=== PATIENT | female | born 1965 | race American Indian/Alaskan Native ===

== ENCOUNTER 2020-05-29 13:27 | Inpatient (IN) | payer OTHER ==
--- NOTE | 2020-05-29 13:46 | Event Note ---
ED Screening Note ED Screening Note: Patient is a 55-year-old female presents emergency room complaints of left upper extremity and left lower extremity weakness that began on 05/21/2020 Patient's sister states that her speech also seems slightly slurred at times She receives her care at [facility] She states that she has an upcoming appointment for tomorrow at the clinic She has not seen anyone for these symptoms She states that she does have some mild exertional shortness of breath She denies any chest pain, vision changes Past medical history of lupus Allergy to aspirin, lisinopril, penicillin, sulfa This initial assessment/diagnostic orders/clinical plan/treatment(s) is/are subject to change based on patients health status, clinical progression and re- assessment by fellow clinical providers in the ED. Further treatment and workup at subsequent clinical providers discretion. Patient/guardian urged not to elope from the ED as their condition may be serious if not clinically assessed and managed. Initial orders include: Stroke work-up, cardiac work-up for shortness of breath
[2020-05-29 14:19] LABS: Basophils % (Auto) 0.4 % (0.0-1.8); Eosinophils % (Auto) 0.4 % (0.0-4.3); Hematocrit 41.2 % (30.3-42.9); Lymphocytes # (Auto) 1.1 K/mm3 (1.2-5.4); Lymphocytes % (Auto) 39.9 % (13.4-35.0); Mean Corpuscular HGB Conc 34 % (30-34); Mean Corpuscular Volume 93 fl (79-97); Monocytes # (Auto) 0.4 K/mm3 (0.0-0.8); Monocytes % (Auto) 13.2 % (0.0-7.3); Platelet Count 249 K/mm3 (140-440); Red Blood Count 4.42 M/mm3 (3.65-5.03); Red Cell Distribution Width 13.7 % (13.2-15.2)
[2020-05-29 14:27] LABS: INR 0.92 (0.87-1.13)
[2020-05-29 14:28] LABS: Partial Thromboplastin Time 26.9 Sec. (24.2-36.6)
--- NOTE | 2020-05-29 14:30 | Emergency Department Report ---
ED Neuro Deficit HPI - General Chief Complaint: Neuro Symptoms/Deficit Stated Complaint: POSS STROKE Time Seen by Provider: 05/29/20 13:43 Source: patient Mode of arrival: Wheelchair Limitations: No Limitations - History of Present Illness Initial Comments: This is a 55-year-old female with a history of hypertension and lupus who states that she has had weakness and numbness of her left side for 1 week. She does not describe the symptoms as progressive nor does she complain of headache. Apparently she called the [facility] yesterday for advice. She, has not been seen by medical provider during this period of time. She was a little vague about whether or not she has had neuro symptoms related to her lupus in the past. However largely I think she is saying that she has not. At the same time she tells me that she was "in a coma before". As far as I can tell she required intubation for THONY inhibitor related angioedema and was probably sedated for some time. She is a very poor historian but is able to give general information. She has not been to this facility apparently prior and there is no [facility] records. Patient states that her numbness involves her entire left hemicorporal body. She states that she has not been able to walk. She states that she has little to no use of her left upper extremity. At times she has slurring of the speech she states. At the time my encounter it is really undetectable. Patient denies a history of her lupus affecting her kidneys. She states that her current lupus medicine is Plaquenil. She states that she is compliant with her amlodipine/HCTZ. -: Gradual, week(s) Location: speech, left face, left arm Presenting Symptoms: Present: Weak/Paralyzed One Side History of same: No Place: home Severity: severe Quality: weak, numb Improves With: none Worsens With: none On Anticoagulants: No Context: gradual onset Associated Symptoms: denies other symptoms Treatments Prior to Arrival: none - Related Data Allergies/Adverse Reactions: Allergies Allergy/AdvReac Type Severity Reaction Status Date / Time aspirin Allergy Unknown Verified 05/29/20 13:31 lisinopril Allergy Unknown Verified 05/29/20 13:31 Penicillins Allergy Swelling Verified 05/29/20 13:31 Sulfa (Sulfonamide Allergy Unknown Verified 05/29/20 13:31 Antibiotics) ED Review of Systems ROS: Stated complaint: POSS STROKE Other details as noted in HPI ED Past Medical Hx - Past Medical History Hx Hypertension: Yes Hx Arthritis: Yes (RA) Additional medical history: LUPUS/ THYROID - Surgical History Hx Cholecystectomy: Yes - Social History Smoking Status: Never Smoker Substance Use Type: None ED Neuro Physical Exam - General Limitations: No Limitations General appearance: alert, in no apparent distress Suspected Stroke: Yes - Head Head exam: Present: atraumatic, normocephalic - Eye Eye exam: Present: normal appearance. Absent: scleral icterus - ENT ENT exam: Present: mucous membranes moist, other (Perhaps slight facial asym metry left nasolabial fold slightly lower) - Neck Neck exam: Present: normal inspection. Absent: tenderness, meningismus - Respiratory Respiratory exam: Present: normal lung sounds bilaterally. Absent: respiratory distress - Cardiovascular Cardiovascular Exam: Present: regular rate, normal rhythm. Absent: systolic murmur, diastolic murmur, rubs, gallop - GI/Abdominal GI/Abdominal exam: Present: soft, normal bowel sounds. Absent: distended, tenderness, guarding, rebound, rigid - Extremities Exam Extremities exam: Present: normal inspection - Back Exam Back exam: Present: normal inspection - Neurological Exam Neurological exam: Present: alert, oriented X3, CN II-XII intact (Question slight asymmetry left), motor sensory deficit - NIHSS Assessment Interval: Baseline 1a. Level of Consciousness: alert/keenly responsive 1b. LOC Questions: answers both correctly 1c. LOC Commands: performs tasks correctly 2. Best Gaze: normal 3. Visual: no visual loss 4. Facial Palsy: normal symmetrical movement 5b. Motor Arm Right: no drift 5a. Motor Arm Left: no movement 6a. Motor Leg Left: no gravity effort 6b. Motor Leg Right: no drift 7. Limb Ataxia: absent 8. Sensory: mild/moderate sensory loss 9. Best Language: no aphasia 10. Dysarthria: normal 11. Extinction/Inattention: no abnormality Total Score: 8 Stroke Severity: Moderate Stroke - Psychiatric Psychiatric exam: Present: normal affect, normal mood - Skin Skin exam: Present: warm, dry, intact, normal color. Absent: rash ED Course Vital Signs 05/29/20 05/29/20 13:37 13:41 Temperature 98 F Pulse Rate 73 Respiratory 20 Rate Blood Pressure 182/114 O2 Sat by Pulse 100 Oximetry - Reevaluation(s) Reevaluation #1: Telemetry neuro consult is requested. 05/29/20 14:36 Reevaluation #2: Discussed with telemetry neuro. They will see patient and make recommendations. Discussed with hospitalist. He will see patient and make disposition. I will hold off on aspirin because the patient is allergic. We will defer Plavix and possible other work-up and therapy to the above physicians. 05/29/20 15:06 Reevaluation #3: Discussed with teleneurologist. See their note for recommendations. Further care per hospitalist staff. 05/29/20 15:28 - Lab Data Result diagrams: 05/29/20 13:57 05/29/20 14:12 Lab Results 05/29/20 05/29/20 05/29/20 Range/Units 13:38 13:57 13:57 WBC 2.9 L (4.5-11.0) K/mm3 RBC 4.42 (3.65-5.03) M/mm3 Hgb 14.0 (10.1-14.3) gm/dl Hct 41.2 (30.3-42.9) % MCV 93 (79-97) fl MCH 32 (28-32) pg MCHC 34 (30-34) % RDW 13.7 (13.2-15.2) % Plt Count 249 (140-440) K/mm3 Lymph % (Auto) 39.9 H (13.4-35.0) % [place] % (Auto) 13.2 H (0.0-7.3) % Eos % (Auto) 0.4 (0.0-4.3) % Baso % (Auto) 0.4 (0.0-1.8) % Lymph # (Auto) 1.1 L (1.2-5.4) K/mm3 [place] # (Auto) 0.4 (0.0-0.8) K/mm3 Eos # (Auto) 0.0 (0.0-0.4) K/mm3 Baso # (Auto) 0.0 (0.0-0.1) K/mm3 Seg Neutrophils % 46.1 (40.0-70.0) % Seg Neutrophils # 1.3 L (1.8-7.7) K/mm3 PT 12.2 (12.2-14.9) Sec. INR 0.92 (0.87-1.13) APTT 26.9 (24.2-36.6) Sec. Sodium (137-145) mmol/L Potassium (3.6-5.0) mmol/L Chloride (98-107) mmol/L Carbon Dioxide (22-30) mmol/L Anion Gap mmol/L BUN (7-17) mg/dL Creatinine (0.6-1.2) mg/dL Estimated GFR ml/min BUN/Creatinine Ratio % Glucose (65-100) mg/dL POC Glucose 61 L (70-105) mg/dL Calcium (8.4-10.2) mg/dL Magnesium (1.7-2.3) mg/dL Total Bilirubin (0.1-1.2) mg/dL Direct Bilirubin (0-0.2) mg/dL Indirect Bilirubin mg/dL AST (5-40) units/L ALT (7-56) units/L Alkaline Phosphatase (35-129) units/L Total Creatine Kinase (30-135) units/L CK-MB (CK-2) (0.0-4.0) ng/mL CK-MB (CK-2) Rel Index (0-4) C-Reactive Protein (0.00-1.30) mg/dL Total Protein (6.3-8.2) g/dL Albumin (3.9-5) g/dL Albumin/Globulin Ratio % 05/29/20 05/29/20 Range/Units 14:12 14:12 WBC (4.5-11.0) K/mm3 RBC (3.65-5.03) M/mm3 Hgb (10.1-14.3) gm/dl Hct (30.3-42.9) % MCV (79-97) fl MCH (28-32) pg MCHC (30-34) % RDW (13.2-15.2) % Plt Count (140-440) K/mm3 Lymph % (Auto) (13.4-35.0) % [place] % (Auto) (0.0-7.3) % Eos % (Auto) (0.0-4.3) % Baso % (Auto) (0.0-1.8) % Lymph # (Auto) (1.2-5.4) K/mm3 [place] # (Auto) (0.0-0.8) K/mm3 Eos # (Auto) (0.0-0.4) K/mm3 Baso # (Auto) (0.0-0.1) K/mm3 Seg Neutrophils % (40.0-70.0) % Seg Neutrophils # (1.8-7.7) K/mm3 PT (12.2-14.9) Sec. INR (0.87-1.13) APTT (24.2-36.6) Sec. Sodium 138 (137-145) mmol/L Potassium 4.1 (3.6-5.0) mmol/L Chloride 105.2 (98-107) mmol/L Carbon Dioxide 27 (22-30) mmol/L Anion Gap 10 mmol/L BUN 8 (7-17) mg/dL Creatinine 0.7 (0.6-1.2) mg/dL Estimated GFR > 60 ml/min BUN/Creatinine Ratio 11 % Glucose 91 (65-100) mg/dL POC Glucose (70-105) mg/dL Calcium 10.2 (8.4-10.2) mg/dL Magnesium 2.00 (1.7-2.3) mg/dL Total Bilirubin 0.30 (0.1-1.2) mg/dL Direct Bilirubin < 0.2 (0-0.2) mg/dL Indirect Bilirubin 0.1 mg/dL AST 25 (5-40) units/L ALT 21 (7-56) units/L Alkaline Phosphatase 93 (35-129) units/L Total Creatine Kinase 72 (30-135) units/L CK-MB (CK-2) 4.2 H (0.0-4.0) ng/mL CK-MB (CK-2) Rel Index 5.8 H (0-4) C-Reactive Protein 0.10 (0.00-1.30) mg/dL Total Protein 9.5 H (6.3-8.2) g/dL Albumin 4.4 (3.9-5) g/dL Albumin/Globulin Ratio 0.9 % Laboratory Results - last 24 hr 05/29/20 05/29/20 13:57 13:57 WBC 2.9 L RBC 4.42 Hgb 14.0 Hct 41.2 MCV 93 MCH 32 MCHC 34 RDW 13.7 Plt Count 249 Lymph % (Auto) 39.9 H [place] % (Auto) 13.2 H Eos % (Auto) 0.4 Baso % (Auto) 0.4 Lymph # (Auto) 1.1 L [place] # (Auto) 0.4 Eos # (Auto) 0.0 Baso # (Auto) 0.0 Seg Neutrophils % 46.1 Seg Neutrophils # 1.3 L PT 12.2 INR 0.92 APTT 26.9 Laboratory Results - last 24 hr 05/29/20 05/29/20 05/29/20 13:38 13:57 13:57 WBC 2.9 L RBC 4.42 Hgb 14.0 Hct 41.2 MCV 93 MCH 32 MCHC 34 RDW 13.7 Plt Count 249 Lymph % (Auto) 39.9 H [place] % (Auto) 13.2 H Eos % (Auto) 0.4 Baso % (Auto) 0.4 Lymph # (Auto) 1.1 L [place] # (Auto) 0.4 Eos # (Auto) 0.0 Baso # (Auto) 0.0 Seg Neutrophils % 46.1 Seg Neutrophils # 1.3 L PT 12.2 INR 0.92 APTT 26.9 Sodium Potassium Chloride Carbon Dioxide Anion Gap BUN Creatinine Estimated GFR BUN/Creatinine Ratio Glucose POC Glucose 61 L Calcium Magnesium Total Bilirubin Direct Bilirubin Indirect Bilirubin AST ALT Alkaline Phosphatase Total Creatine Kinase CK-MB (CK-2) CK-MB (CK-2) Rel Index Total Protein Albumin Albumin/Globulin Ratio 05/29/20 14:12 WBC RBC Hgb Hct MCV MCH MCHC RDW Plt Count Lymph % (Auto) [place] % (Auto) Eos % (Auto) Baso % (Auto) Lymph # (Auto) [place] # (Auto) Eos # (Auto) Baso # (Auto) Seg Neutrophils % Seg Neutrophils # PT INR APTT Sodium 138 Potassium 4.1 Chloride 105.2 Carbon Dioxide 27 Anion Gap 10 BUN 8 Creatinine 0.7 Estimated GFR > 60 BUN/Creatinine Ratio 11 Glucose 91 POC Glucose Calcium 10.2 Magnesium 2.00 Total Bilirubin 0.30 Direct Bilirubin < 0.2 Indirect Bilirubin 0.1 AST 25 ALT 21 Alkaline Phosphatase 93 Total Creatine Kinase 72 CK-MB (CK-2) 4.2 H CK-MB (CK-2) Rel Index 5.8 H Total Protein 9.5 H Albumin 4.4 Albumin/Globulin Ratio 0.9 - EKG Data -: EKG Interpreted by Me EKG shows normal: sinus rhythm (First-degree), axis (Left foot axis), intervals, ST-T waves Rate: normal Interpretation: LVH (LVH, associated repolarization abnormality, left atrial enlargement, first-degree AV block) - Radiology Data Radiology results: image reviewed (I do not see any evidence of an acute intracranial process. Report is pending.) No acute process seen by me or teleneurologist. Report is pending. 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 Critical care attestation.: If time is entered above; I have spent that time in minutes in the direct care of this critically ill patient, excluding procedure time. ED Disposition Clinical Impression: CVA (cerebral vascular accident) Qualifiers: CVA mechanism: unspecified Qualified Code(s): I63.9 - Cerebral infarction, unspecified Disposition: DC-09 OP ADMIT IP TO THIS HOSP Is pt being admited?: Yes Does the pt Need Aspirin: No (Allergic to aspirin) Condition: Stable Referrals: PRIMARY CARE, [Primary Care Provider] - 3-5 Days Time of Disposition: 15:29
[2020-05-29 14:53] LABS: Creatine Kinase MB 4.2 ng/mL (0.0-4.0)
[2020-05-29 14:57] LABS: Alanine Aminotransferase 21 units/L (7-56); Albumin 4.4 g/dL (3.9-5); Blood Urea Nitrogen 8 mg/dL (7-17); Calcium 10.2 mg/dL (8.4-10.2); Hemolysis Index 1
[2020-05-29 15:00] LABS: BUN/Creatinine Ratio 11; Bilirubin,Direct < 0.2 mg/dL (0-0.2)
--- NOTE | 2020-05-29 15:07 | Cat Scan Report ---
NONENHANCED CT SCAN OF THE HEAD: INDICATION / CLINICAL INFORMATION: 55 years Female; left sided weakness x1 week. TECHNIQUE: Routine CT head without contrast. All CT scans at this location are performed using CT dos e reduction for ALARA by means of automated exposure control. COMPARISON: None. FINDINGS: BRAIN / INTRACRANIAL CONTENTS: No acute hemorrhage, mass effect, midline shift, hydrocephalus, or acu te, large territorial infarct. Focal areas of encephalomalacia probably ischemia in the left occipita l lobe and left cuneus. No mass effect No significant white matter abnormality. Mild volume loss in t he cerebellar vermis; retrocerebellar CSF-containing space consistent with magna cisterna magna CRANIOCERVICAL JUNCTION: No significant abnormality. ORBITS: No significant abnormality of visualized orbits. SINUSES / MASTOIDS: No significant abnormality of the visualized paranasal sinuses or mastoid air delbert ls. ADDITIONAL FINDINGS: Visualized portions of the parotid glands, as focal areas of lower CT attenuatio n; is there history of Sjogren's IMPRESSION: No focal mass, hemorrhage, hydrocephalus, or acute, large territorial infarct. Focal areas of encephalomalacia in the left occipital lobe and left cuneus Signer Name: Cory Torre MD Signed: 05/29/2020 3:02 PM Workstation Name: [id number]
--- NOTE | 2020-05-29 15:19 | XRay Report ---
CHEST 1 VIEW INDICATION: hypertension. COMPARISON: None FINDINGS: Support devices: None. Heart: Within normal limits. Lungs/Pleura: No acute air space or interstitial disease. Additional findings: None. IMPRESSION: No acute findings. Signer Name: Barrera Baldwin Jr, MD Signed: 05/29/2020 3:14 PM Workstation Name: [id number]
--- NOTE | 2020-05-29 15:31 | History and Physical Report ---
History of Present Illness Chief complaint: Im weak History of present illness: 55 YO Female with SLE, RA, HTN present to ED for evaluation. Pt states "I feel weak on my left side". Pt states that she has experienced weakness and numbness on her left side for the past 1 week with persistent symptoms over the same time frame. Pt transported to [facility] via private vehicle for further care and evaluation of the aforementioned symptoms. Pt seen and evaluated in ED. All labs and imaging studies reviewed. The patient was found to have a neurologic deficit and a code stroke was called. The patient was placed in observation status and admitted to medical floor and initiated on CVA protocol. Pt is allergic to aspirin and was initiated on antiplatelet therapy with plavix. Teleneurology consulted in ED. Pt denies fever, chills, CP, Palpitations, NVD, Trauma, productive cough, recent ill contacts, or known exposure to COVID 19. Past History Past Medical History: arthritis, hypertension, other (See HPI) Past Surgical History: cholecystectomy Social history: single. denies: smoking, alcohol abuse, prescription drug abuse Family history: hypertension Medications and Allergies Allergies Allergy/AdvReac Type Severity Reaction Status Date / Time aspirin Allergy Unknown Verified 05/29/20 13:31 lisinopril Allergy Unknown Verified 05/29/20 13:31 Penicillins Allergy Swelling Verified 05/29/20 13:31 Sulfa (Sulfonamide Allergy Unknown Verified 05/29/20 13:31 Antibiotics) Review of Systems Constitutional: no weight loss, no weight gain, no fever, no chills Ears, nose, mouth and throat: no ear pain, no ear discharge, no tinnitis, no decreased hearing, no nose pain Breasts: no change in shape, no swelling, no mass Cardiovascular: no chest pain, no orthopnea, no palpitations, no rapid/irregular heart beat, no edema Respiratory: no cough, no hemoptysis, no shortness of breath Gastrointestinal: no abdominal pain, no nausea, no vomiting, no change in bowel habits, no hematemesis Genitourinary Female: no pelvic pain, no flank pain, no dysuria, no urinary frequency, no urgency Rectal: no pain, no incontinence, no bleeding Musculoskeletal: no neck pain, no shooting arm pain, no arm numbness/tingling Integumentary: no rash, no pruritis, no redness, no sores, no wounds Neurological: no transient paralysis, no paralysis, no parathesias, no numbness, no tingling, no seizures Psychiatric: no anxiety, no change in sleep habits, no insomnia, no hypersomnia, no change in libido, no disorientation Endocrine: no cold intolerance, no polydipsia, no excessive sweating Hematologic/Lymphatic: no easy bruising, no lymphadenopathy, no lymphedema Allergic/Immunologic: no allergic rhinitis, no persistent infections, no angioedema Exam - Constitutional Vitals: Temp Pulse Resp BP Pulse Ox 98 F 73 20 182/114 100 05/29/20 13:41 05/29/20 13:37 05/29/20 13:37 05/29/20 13:37 05/29/20 13:37 General appearance: Present: mild distress - EENT Eyes: Present: PERRL ENT: hearing intact, clear oral mucosa - Neck Neck: Present: supple, normal ROM - Respiratory Respiratory effort: normal Respiratory: bilateral: CTA - Cardiovascular Heart Sounds: Present: S1 & S2. Absent: rub, click - Extremities Extremities: pulses symmetrical, No edema Peripheral Pulses: within normal limits - Abdominal General gastrointestinal: Present: soft, non-tender, non-distended, normal bowel sounds Female genitourinary: Present: normal - Integumentary Integumentary: Present: clear, warm, dry - Musculoskeletal Musculoskeletal: left sided weakness - Psychiatric Psychiatric: appropriate mood/affect, intact judgment & insight - Neurologic Neurologic: CNII-XII intact, moves all extremities Results - Labs CBC & Chem 7: 05/29/20 13:57 05/29/20 14:12 Labs: Abnormal lab results 05/29/20 05/29/20 05/29/20 Range/Units 13:38 13:57 14:12 WBC 2.9 L (4.5-11.0) K/mm3 Lymph % (Auto) 39.9 H (13.4-35.0) % [place] % (Auto) 13.2 H (0.0-7.3) % Lymph # (Auto) 1.1 L (1.2-5.4) K/mm3 Seg Neutrophils # 1.3 L (1.8-7.7) K/mm3 POC Glucose 61 L (70-105) mg/dL CK-MB (CK-2) 4.2 H (0.0-4.0) ng/mL CK-MB (CK-2) Rel Index 5.8 H (0-4) Total Protein 9.5 H (6.3-8.2) g/dL Assessment and Plan - Patient Problems (1) CVA (cerebral vascular accident) Current Visit: Yes Status: Acute Qualifiers: CVA mechanism: occlusion Precerebral and cerebral artery: posterior c erebral artery Laterality of affected vessel: left Qualified Code(s): I63.532 - Cerebral infarction due to unspecified occlusion or stenosis of left posterior cerebral artery Plan to address problem: CVA Protocol: Physical therapy consulted, Speech therapy consulted, Occupational therapy consulted, Antiplatelet therapy, CT Head, neuro check, lipid panel, statin therapy. (2) SLE (systemic lupus erythematosus related syndrome) Current Visit: Yes Status: Acute Plan to address problem: Continue plaquenil, supportive care, outpatient rheumatology f/u (3) Accelerated hypertension Current Visit: Yes Status: Acute Plan to address problem: Monitor BP q shift, continue medical management (4) Rheumatoid arthritis Current Visit: Yes Status: Acute Plan to address problem: supportive care, continue medical management. (5) DVT prophylaxis Current Visit: Yes Status: Acute Plan to address problem: SCD to BLE while in bed, supportive care.
--- NOTE | 2020-05-29 15:40 | Emergency Department Report ---
ED Neuro Deficit HPI - General Chief Complaint: Neuro Symptoms/Deficit Stated Complaint: POSS STROKE Time Seen by Provider: 05/29/20 13:43 Source: patient Mode of arrival: Wheelchair Limitations: No Limitations - History of Present Illness Initial Comments: [facility] Tele[facility]urology Consult Services Stat Consult Date of Service: 05/29/2020 14:33:40 Impression: I63.332 - Cerebrovascular accident (CVA) due to thrombosis of left posterior cerebral artery (HCCC) Comments/Sign-Out: The lesion is reported by radiology to me appear to be subacute consistent with her symptoms. She needs MRI the brain, A1c, fasting lipid profile, EKG monitoring, echocardiogram, carotid Doppler, rehab services evaluation, blood pressure control. CT HEAD: Showed No Acute Hemorrhage or Acute Core Infarct Not Reviewed Unable to access images. Reported to show infarcts in the left occipital lobe and cuneus. Metrics: [facility] Notification Time: 05/29/2020 14:31:35 Stamp Time: 05/29/2020 14:33:40 Callback Response Time: 05/29/2020 14:39:12 Our recommendations are outlined below. Recommendations: Initiate Aspirin 81 MG Daily Imaging Studies: MRI Head Carotid Dopplers Therapies: Physical Therapy, Occupational Therapy, Speech Therapy Assessment When Applicable Other WorkUp: Check B12 level Disposition: Neurology Follow Up Recommended Sign Out: Discussed with Emergency Department Provider Chief Complaint: Left-sided weakness History of Present Illness: Patient is a 55 year old Female. This 55-year-old woman had sudden onset seven days ago of severe weakness on the left side and some mild slurred speech. She decided that she would wait for an upcoming doctor's appointment. In addition to risk factors below she has a history of lupus. She denies prior stroke. Past Medical History: Hypertension There is NO history of Diabetes Mellitus There is NO history of Hyperlipidemia There is NO history of Atrial Fibrillation There is NO history of Coronary Artery Disease There is NO history of Stroke Anticoagulant use: No Antiplatelet use: No Examination: BP(171/104), Pulse(73), Blood Glucose(91, 61) 1A: Level of Consciousness - Alert; keenly responsive + 0 1B: Ask Month and Age - Both Questions Right + 0 1C: Blink Eyes & Squeeze Hands - Performs Both Tasks + 0 2: Test Horizontal Extraocular Movements - Normal + 0 3: Test Visual [place] - Partial Hemianopia + 1 4: Test Facial Palsy (Use Grimace if Obtunded) - Minor paralysis (flat nasolabial fold, smile asymmetry) + 1 5A: Test Left Arm Motor Drift - No Effort Against [place] + 3 5B: Test Right Arm Motor Drift - No Drift for 10 Seconds + 0 6A: Test Left Leg Motor Drift - No Effort Against Canalou + 3 6B: Test Right Leg Motor Drift - No Drift for 5 Seconds + 0 7: Test Limb Ataxia (FNF/Heel-Priest) - No Ataxia + 0 8: Test Sensation - Mild-Moderate Loss: Less Sharp/More Dull + 1 9: Test Language/Aphasia - Normal; No aphasia + 0 10: Test Dysarthria - Mild-Moderate Dysarthria: Slurring but can be understood + 1 11: Test Extinction/Inattention - No abnormality + 0 NIHSS Score: 10 Due to the immediate potential for life-threatening deterioration due to underlying acute neurologic illness, I spent 25 minutes providing critical care. This time includes time for face to face visit via telemedicine, review of medical records, imaging studies and discussion of findings with providers, the patient and/or family. Dr Stewart Beaver [facility] Case [id number] Location: speech, left face, left arm History of same: No Place: home Severity: severe Quality: weak, numb Improves With: none Worsens With: none On Anticoagulants: No Treatments Prior to Arrival: none - Related Data Allergies/Adverse Reactions: Allergies Allergy/AdvReac Type Severity Reaction Status Date / Time aspirin Allergy Unknown Verified 05/29/20 13:31 lisinopril Allergy Unknown Verified 05/29/20 13:31 Penicillins Allergy Swelling Verified 05/29/20 13:31 Sulfa (Sulfonamide Allergy Unknown Verified 05/29/20 13:31 Antibiotics) ED Review of Systems ROS: Stated complaint: POSS STROKE Other details as noted in HPI ED Past Medical Hx - Past Medical History Hx Hypertension: Yes Hx Arthritis: Yes (RA) Additional medical history: LUPUS/ THYROID - Surgical History Hx Cholecystectomy: Yes - Social History Smoking Status: Never Smoker Substance Use Type: None ED Neuro Physical Exam - General Limitations: No Limitations General appearance: alert, in no apparent distress Suspected Stroke: Yes - NIHSS Assessment Interval: Baseline 1a. Level of Consciousness: alert/keenly responsive 1b. LOC Questions: answers both correctly 1c. LOC Commands: performs tasks correctly 2. Best Gaze: normal 3. Visual: complete hemianopia 4. Facial Palsy: minor paralysis 5b. Motor Arm Right: no drift 5a. Motor Arm Left: no gravity effort 6a. Motor Leg Left: no gravity effort 6b. Motor Leg Right: no drift 7. Limb Ataxia: absent 8. Sensory: mild/moderate sensory loss 9. Best Language: no aphasia 10. Dysarthria: mild/moderate dysarthria 11. Extinction/Inattention: no abnormality Total Score: 11 Stroke Severity: Moderate Stroke ED Course Vital Signs 05/29/20 05/29/20 13:37 13:41 Temperature 98 F Pulse Rate 73 Respiratory 20 Rate Blood Pressure 182/114 O2 Sat by Pulse 100 Oximetry - Lab Data Result diagrams: 05/29/20 13:57 05/29/20 14:12 Lab Results 05/29/20 05/29/20 05/29/20 Range/Units 13:38 13:57 13:57 WBC 2.9 L (4.5-11.0) K/mm3 RBC 4.42 (3.65-5.03) M/mm3 Hgb 14.0 (10.1-14.3) gm/dl Hct 41.2 (30.3-42.9) % MCV 93 (79-97) fl MCH 32 (28-32) pg MCHC 34 (30-34) % RDW 13.7 (13.2-15.2) % Plt Count 249 (140-440) K/mm3 Lymph % (Auto) 39.9 H (13.4-35.0) % [place] % (Auto) 13.2 H (0.0-7.3) % Eos % (Auto) 0.4 (0.0-4.3) % Baso % (Auto) 0.4 (0.0-1.8) % Lymph # (Auto) 1.1 L (1.2-5.4) K/mm3 [place] # (Auto) 0.4 (0.0-0.8) K/mm3 Eos # (Auto) 0.0 (0.0-0.4) K/mm3 Baso # (Auto) 0.0 (0.0-0.1) K/mm3 Seg Neutrophils % 46.1 (40.0-70.0) % Seg Neutrophils # 1.3 L (1.8-7.7) K/mm3 ESR (0-20) mm/Hr PT 12.2 (12.2-14.9) Sec. INR 0.92 (0.87-1.13) APTT 26.9 (24.2-36.6) Sec. Sodium (137-145) mmol/L Potassium (3.6-5.0) mmol/L Chloride (98-107) mmol/L Carbon Dioxide (22-30) mmol/L Anion Gap mmol/L BUN (7-17) mg/dL Creatinine (0.6-1.2) mg/dL Estimated GFR ml/min BUN/Creatinine Ratio % Glucose (65-100) mg/dL POC Glucose 61 L (70-105) mg/dL Calcium (8.4-10.2) mg/dL Magnesium (1.7-2.3) mg/dL Total Bilirubin (0.1-1.2) mg/dL Direct Bilirubin (0-0.2) mg/dL Indirect Bilirubin mg/dL AST (5-40) units/L ALT (7-56) units/L Alkaline Phosphatase (35-129) units/L Total Creatine Kinase (30-135) units/L CK-MB (CK-2) (0.0-4.0) ng/mL CK-MB (CK-2) Rel Index (0-4) C-Reactive Protein (0.00-1.30) mg/dL Total Protein (6.3-8.2) g/dL Albumin (3.9-5) g/dL Albumin/Globulin Ratio % 05/29/20 05/29/20 05/29/20 Range/Units 14:12 14:12 14:12 WBC (4.5-11.0) K/mm3 RBC (3.65-5.03) M/mm3 Hgb (10.1-14.3) gm/dl Hct (30.3-42.9) % MCV (79-97) fl MCH (28-32) pg MCHC (30-34) % RDW (13.2-15.2) % Plt Count (140-440) K/mm3 Lymph % (Auto) (13.4-35.0) % [place] % (Auto) (0.0-7.3) % Eos % (Auto) (0.0-4.3) % Baso % (Auto) (0.0-1.8) % Lymph # (Auto) (1.2-5.4) K/mm3 [place] # (Auto) (0.0-0.8) K/mm3 Eos # (Auto) (0.0-0.4) K/mm3 Baso # (Auto) (0.0-0.1) K/mm3 Seg Neutrophils % (40.0-70.0) % Seg Neutrophils # (1.8-7.7) K/mm3 ESR 48 (0-20) mm/Hr PT (12.2-14.9) Sec. INR (0.87-1.13) APTT (24.2-36.6) Sec. Sodium 138 (137-145) mmol/L Potassium 4.1 (3.6-5.0) mmol/L Chloride 105.2 (98-107) mmol/L Carbon Dioxide 27 (22-30) mmol/L Anion Gap 10 mmol/L BUN 8 (7-17) mg/dL Creatinine 0.7 (0.6-1.2) mg/dL Estimated GFR > 60 ml/min BUN/Creatinine Ratio 11 % Glucose 91 (65-100) mg/dL POC Glucose (70-105) mg/dL Calcium 10.2 (8.4-10.2) mg/dL Magnesium 2.00 (1.7-2.3) mg/dL Total Bilirubin 0.30 (0.1-1.2) mg/dL Direct Bilirubin < 0.2 (0-0.2) mg/dL Indirect Bilirubin 0.1 mg/dL AST 25 (5-40) units/L ALT 21 (7-56) units/L Alkaline Phosphatase 93 (35-129) units/L Total Creatine Kinase 72 (30-135) units/L CK-MB (CK-2) 4.2 H (0.0-4.0) ng/mL CK-MB (CK-2) Rel Index 5.8 H (0-4) C-Reactive Protein 0.10 (0.00-1.30) mg/dL Total Protein 9.5 H (6.3-8.2) g/dL Albumin 4.4 (3.9-5) g/dL Albumin/Globulin Ratio 0.9 % Critical care attestation.: If time is entered above; I have spent that time in minutes in the direct care of this critically ill patient, excluding procedure time. ED Disposition Clinical Impression: CVA (cerebral vascular accident) Qualifiers: CVA mechanism: occlusion Precerebral and cerebral artery: posterior cerebral artery Laterality of affected vessel: left Qualified Code(s): I63.532 - Cerebral infarction due to unspecified occlusion or stenosis of left posterior cerebral artery Disposition: 09 OP ADMIT IP TO THIS HOSP Is pt being admited?: Yes Condition: Stable Referrals: PRIMARY CARE, [Primary Care Provider] - 3-5 Days
[2020-05-29 16:25] LABS: Blood Urea Nitrogen 8 mg/dL (7-17)
[2020-05-29 16:26] LABS: Alanine Aminotransferase 21 units/L (7-56); Albumin 4.4 g/dL (3.9-5); BUN/Creatinine Ratio 11; Calcium 10.2 mg/dL (8.4-10.2)
[2020-05-29] MEDS ORDERED: PROMETHAZINE 25 MG RECT SUPP PR PRN (17:29)
[2020-05-29] MEDS ORDERED: METOCLOPRAMIDE 10 MG TAB PO PRN (17:29)
[2020-05-29] MEDS ORDERED: ONDANSETRON 4 MG/2 ML INJ IV PRN (17:29)
[2020-05-29] MEDS ORDERED: MAGNESIUM HYDROXIDE (MOM) ORAL LIQD UDC PO PRN (17:29)
[2020-05-29] MEDS ORDERED: hydrALAZINE 20 MG/1 ML INJ IV PRN (18:42)
[2020-05-29] MEDS: hydroCHLOROthiazide 12.5 MG CAP PO SCH (19:21)
[2020-05-30] MEDS: ACETAMINOPHEN 325 MG TAB PO PRN ×2 (05:23→22:00)
[2020-05-30 06:32] LABS: Chol/HDL Ratio 2.7 %
[2020-05-30] MEDS ORDERED: ASPIRIN 325 MG TAB PO SCH (10:00)
[2020-05-30] MEDS: hydroCHLOROthiazide 12.5 MG CAP PO SCH (10:37)
[2020-05-30] MEDS: CLOPIDOGREL 75 MG TAB PO SCH (10:37)
[2020-05-30 11:01] LABS: Amphetamine Screen,Urine Negative; Benzodiazepines Screen,Urine Negative; Cannabinoid Screen,Urine Negative; Cocaine Screen,Urine Negative; Methadone Screen,Urine Negative; Opiate Screen,Urine Negative
--- NOTE | 2020-05-30 13:40 | Vascular Lab Report ---
BILATERAL CAROTID DOPPLER ULTRASOUND INDICATION : stroke TECHNIQUE: Grayscale and color Doppler imaging performed through the neck. COMPARISON: None FINDINGS: Right: There is minimal partially calcified plaque in the carotid bulb. Peak systolic velocity in t he CCA is 85 cm/s with end-diastolic velocity of 23 cm/s. Peak systolic velocity in the proximal ICA is 90 cm/s with end-diastolic velocity of 22 cm/s. ICA to CCA ratio is less than 2. There is antegrad e flow in the ECA and the vertebral artery. Left: There is no significant atherosclerotic disease. Peak systolic velocity in the CCA is 75 cm/s w ith end-diastolic velocity of 22 cm/s. Peak systolic velocity in the proximal ICA is 97 cm/s with end -diastolic velocity of 38 cm/s. ICA to CCA ratio is less than 2. There is antegrade flow in the ECA and the vertebral artery. IMPRESSION: No hemodynamically significant stenosis by NASCET criteria. Doppler velocities indicate l ess than 50% luminal narrowing bilaterally. Signer Name: Barrera Baldwin Jr, MD Signed: 05/30/2020 1:36 PM Workstation Name: [id number]
--- NOTE | 2020-05-30 18:06 | Progress Note ---
Assessment and Plan A/p - Patient Problems (1) CVA (cerebral vascular accident) Current Visit: Yes Status: Acute Qualifiers: CVA mechanism: occlusion Precerebral and cerebral artery: posterior cerebral artery Laterality of affected vessel: left Qualified Code(s): I63. 532 - Cerebral infarction due to unspecified occlusion or stenosis of left posterior cerebral artery Plan to address problem: CVA Protocol: Physical therapy consulted, Speech therapy consulted, Occupational therapy consulted, Antiplatelet therapy, CT Head, neuro check, lipid panel, statin therapy. MRI brain pending, left sided weakness persists Able to walk some withsupport (2) SLE (systemic lupus erythematosus related syndrome) Current Visit: Yes Status: Acute Plan to address problem: Continue plaquenil, supportive care, outpatient rheumatology f/u (3) Accelerated hypertension Current Visit: Yes Status: Acute Plan to address problem: Medications adjusted (4) Rheumatoid arthritis Current Visit: Yes Status: Acute Plan to address problem: supportive care, continue medical management. Continue Plaquenil (5) DVT prophylaxis Current Visit: Yes Status: Acute Plan to address problem: SCD to BLE while in bed, supportive care. Subjective Date of service: 05/30/20 Principal diagnosis: CVA with left-sided weakness Interval history: 55 YO Female with SLE, RA, HTN present to ED for evaluation. Pt states "I feel weak on my left side". Pt states that she has experienced weakness and numbness on her left side for the past 1 week with persistent symptoms over the same time frame. Pt transported to [facility] via private vehicle for further care and evaluation of the aforementioned symptoms. Pt seen and evaluated in ED. All labs and imaging studies reviewed. The patient was found to have a neurologic deficit and a code stroke was called. The patient was placed in observation status and admit pradeep to medical floor and initiated on CVA protocol. Pt is allergic to aspirin and was initiated on antiplatelet therapy with plavix. Teleneurology consulted in ED. Pt denies fever, chills, CP, Palpitations, NVD, Trauma, productive cough, recent ill contacts, or known exposure to COVID 19. 05/30/2020 Left-sided weakness persists Echocardiogram and carotid Doppler scan reviewed MRI brain pending Objective - Constitutional Vitals: Vital Signs - 12hr 05/30/20 05/30/20 05/30/20 10:00 10:06 11:50 Temperature 98.5 F 97.6 F Pulse Rate 83 74 Respiratory 18 18 Rate Blood Pressure 147/82 149/97 O2 Sat by Pulse 100 100 Oximetry 05/30/20 14:05 Temperature Pulse Rate Respiratory Rate Blood Pressure O2 Sat by Pulse 95 Oximetry General appearance: Present: no acute distress, well-nourished - EENT Eyes: PERRL, EOM intact ENT: hearing intact, clear oral mucosa Ears: bilateral: normal - Neck Neck: supple, normal ROM - Respiratory Respiratory effort: normal Respiratory: bilateral: CTA - Breasts Breasts: normal - Cardiovascular Heart rate: 78 Rhythm: regular Heart Sounds: Present: S1 & S2. Absent: gallop, rub Extremities: pulses intact, No edema, normal color, Full ROM - Gastrointestinal General gastrointestinal: Present: soft, non-tender, non-distended, normal bowel sounds - Genitourinary Female genitourinary: normal - Integumentary Integumentary: clear, warm, dry - Musculoskeletal Musculoskeletal: left sided weakness - Neurologic Neurologic: focal deficits (Left hemiplegia) - Psychiatric Psychiatric: memory intact, appropriate mood/affect, intact judgment & insight - Labs CBC & Chem 7: 05/29/20 13:57 05/29/20 14:12 HEART Score - HEART Score Troponin: Troponin T < 0.010 ng/mL (0.00-0.029) 05/29/20 13:57
--- NOTE | 2020-05-31 08:26 | Progress Note ---
Assessment and Plan (1) CVA (cerebral vascular accident) Current Visit: Yes Status: Acute Qualifiers: CVA mechanism: occlusion Precerebral and cerebral artery: posterior cerebral artery Laterality of affected vessel: left Qualified Code(s): I63.532 - Cerebral infarction due to unspecified occlusion or stenosis of left posterior cerebral artery Plan to address problem: CVA Protocol: Physical therapy consulted, Speech therapy consulted, Occupational therapy consulted, Antiplatelet therapy, CT Head, neuro check, lipid panel, statin therapy. MRI brain pending, left sided weakness I did not see a lot of weakness. Patient was 5 out of 5 strength in both abduction and abduction and also rotation at the left shoulder joint. Patient did complain of pain however when she moved joint. Patient has been going to see a physician about this for quite some time this is not acute. Need to obtain MRI to rule out CVA. Patient does not appear to need acute rehab at this time at all. Patient able to get up walk around without any problems with gait. Get up and go test appears to be limited but adequate. Patient has significant inconsistencies with strength in left arm left leg. Will aggressively treat pain control give patient back her Percocet. Able to walk some withsupport (2) SLE (systemic lupus erythematosus related syndrome) Current Visit: Yes Status: Acute Plan to address problem: Continue plaquenil, supportive care, outpatient rheumatology f/u Does not appear to be a lupus flare no joint inflammation no fever. No myalgias. (3) Accelerated hypertension Current Visit: Yes Status: Acute Plan to address problem: Medications adjusted however remains uncontrolled we will add amlodipine (4) Rheumatoid arthritis Current Visit: Yes Status: Acute Plan to address problem: supportive care, continue medical management. Continue Plaquenil (5) DVT prophylaxis Current Visit: Yes Status: Acute Plan to address problem: SCD to BLE while in bed, supportive care. Subjective Date of service: 05/31/20 Principal diagnosis: CVA with left-sided weakness Interval history: 55 YO Female with SLE, RA, HTN present to ED for evaluation. Pt states "I feel weak on my left side". Pt states that she has experienced weakness and numbness on her left side for the past 1 week with persistent symptoms over the same time frame. Pt transported to [facility] via private vehicle for further care and evaluation of the aforementioned symptoms. Pt seen and evaluated in ED. All labs and imaging studies reviewed. The patient was found to have a neurologic deficit and a code stroke was called. The patient was placed in observation status and admitted to medical floor and initiated on CVA protocol. Pt is allergic to aspirin and was initiated on antiplatelet therapy with plavix. Teleneurology consulted in ED. Pt denies fever, chills, CP, Palpitations, NVD, Trauma, productive cough, recent ill contacts, or known exposure to COVID 19. 05/31: Patient today gives history of continue left arm weakness. Patient however states this has been going on for a long time. Patient states she is in pain fr om her left arm and neck. She has been going to the doctor for quite some time to receive pain medications for the left arm numbness and pain. Patient scheduled to have an MRI today to evaluate for acute CVA. Will initiate pain control Percocet. Follow-up MRI results. Has risk of systemic lupus erythematous. I did discuss echocardiogram results with patient and Doppler findings. Head CT unremarkable. No signs of significant stenosis and echocardiogram 55 to 60%. Objective - Constitutional Vitals: Vital Signs - 12hr 05/30/20 05/30/20 05/30/20 22:00 22:10 23:35 Temperature 98.4 F Pulse Rate 72 70 Respiratory 16 Rate Blood Pressure 151/94 O2 Sat by Pulse 99 100 96 Oximetry 05/31/20 03:16 Temperature 97.7 F Pulse Rate 64 Respiratory 14 Rate Blood Pressure 130/77 O2 Sat by Pulse 100 Oximetry General appearance: Present: no acute distress, well-nourished - EENT Eyes: PERRL, EOM intact ENT: hearing intact, clear oral mucosa Ears: bilateral: normal - Neck Neck: supple, normal ROM - Respiratory Respiratory effort: normal Respiratory: bilateral: CTA - Breasts Breasts: normal - Cardiovascular Rhythm: regular Heart Sounds: Present: S1 & S2. Absent: gallop, rub Extremities: pulses intact, No edema, normal color, Full ROM - Gastrointestinal General gastrointestinal: Present: soft, non-tender, non-distended, normal bowel sounds - Genitourinary Female genitourinary: normal - Integumentary Integumentary: clear, warm, dry - Musculoskeletal Musculoskeletal: left sided weakness, other (Left-sided weakness and pain with abduction) - Neurologic Neurologic: focal deficits, moves all extremities, other (Patient does have a focal deficit minimal on the left side with slightly decreased strength in abduction of the shoulder however could be from underlying adhesive capsulitis arthritis.) - Psychiatric Psychiatric: memory intact, appropriate mood/affect, intact judgment & insight - Labs CBC & Chem 7: 05/29/20 13:57 05/29/20 14:12 HEART Score - HEART Score Troponin: Troponin T < 0.010 ng/mL (0.00-0.029) 05/29/20 13:57
[2020-05-31] MEDS: CLOPIDOGREL 75 MG TAB PO SCH (09:07)
[2020-05-31] MEDS: ACETAMINOPHEN 325 MG TAB PO PRN (09:07)
[2020-05-31] MEDS: hydroCHLOROthiazide 12.5 MG CAP PO SCH (09:07)
[2020-05-31] MEDS ORDERED: oxyCODONE /ACETAMINOPHEN 5-325MG TAB PO PRN (10:26)
[2020-05-31] MEDS: GABAPENTIN 300 MG CAP PO SCH ×3 (14:31→21:57)
[2020-05-31] MEDS: amLODIPine 10 MG TAB PO SCH (18:00)
[2020-06-01] MEDS: GABAPENTIN 300 MG CAP PO SCH (06:31)
[2020-06-01] MEDS: CLOPIDOGREL 75 MG TAB PO SCH (09:16)
[2020-06-01] MEDS: hydroCHLOROthiazide 12.5 MG CAP PO SCH (09:16)
[2020-06-01] MEDS: amLODIPine 10 MG TAB PO SCH (09:16)
--- NOTE | 2020-06-01 09:32 | Magnetic Resonance Report ---
MRI BRAIN WITHOUT CONTRAST INDICATION / CLINICAL INFORMATION: Stroke. Left-sided weakness TECHNIQUE: Multisequence, multiplanar images were obtained. COMPARISON: CT head dated 05/29/2020 FINDINGS: CEREBRAL and CEREBELLAR HEMISPHERES: A 7 x 11 mm focus of diffusion restriction is identified in the right medulla. No other areas of diffusion restriction are appreciated. No midline shift. No acute hemorrhage. No extra-axial fluid collection. Minimal chronic microangiopathy changes are noted in t he periventricular white matter. A subtle chronic cortical and the posterior left occipital lobe corie sures 1.7 cm. VENTRICLES: Normal in size and configuration for age. VISUALIZED ORBITS: No significant abnormality. VISUALIZED PARANASAL SINUSES: No significant abnormality. ADDITIONAL FINDINGS: None. IMPRESSION: 7 x 11 mm acute to subacute ischemic infarct in the right medulla. No evidence for hemorrhage. Mild nonspecific chronic white matter changes. Small chronic cortical infarct in the left occipital lobe. Signer Name: Barrera Baldwin Jr, MD Signed: 06/01/2020 9:28 AM Workstation Name: [id number]
--- NOTE | 2020-06-01 10:41 | Discharge Summary ---
Providers - Providers Date of Admission: 05/31/20 15:05 Date of discharge: 06/01/20 Attending physician: DIAZ BETANCOURT 05/29/20 17:29 Occupational Therapy Evaluate and Treat [CONS] Routine Comment: Reason For Exam: Neuro deficits Physical Therapy Evaluation and Treat [CONS] Routine Comment: Reason For Exam: Neuro deficits 05/29/20 17:32 Speech Therapy Evaluation and Treat [CONS] Routine Reason For Exam: swallow eval Primary care physician: [facility] Hospitalization Reason for admission: deconditioning, SLE exac Condition: Stable Disposition: DC-30 STILL A PATIENT Exam - Constitutional Vitals: Temp Pulse Resp BP Pulse Ox 98.0 F 70 18 144/88 97 06/01/20 07:54 06/01/20 10:00 06/01/20 10:00 06/01/20 09:16 06/01/20 10:00 Plan Follow up with: PRIMARY CAREMD [Primary Care Provider] - 3-5 Days
--- NOTE | 2020-06-01 10:45 | Progress Note ---
Assessment and Plan Assessment and plan: Acute right medullary infarct. MRI brain reveals 7 x 11 mm acute to subacute ischemic infarct in the right medulla. No evidence of hemorrhage Left-sided hemiparesis. SLE Accelerated hypertension Rheumatoid arthritis 06/01/2020. MRI reveals acute right medullary infarct. Continue Plavix and stat in daily. Echocardiogram revealed global left ventricular systolic function normal and mild concentric left ventricular hypertrophy. EF 55 to 60%. No ASD. Right ventricular systolic pressure calculated at 27 mmHg. Carotid Dopplers negative. History Interval history: Patient still with weakness of the left side. Hospitalist Physical - Constitutional Vitals: Temp Pulse Resp BP Pulse Ox 98.0 F 70 18 144/88 97 06/01/20 07:54 06/01/20 10:00 06/01/20 10:00 06/01/20 09:16 06/01/20 10:00 General appearance: Present: no acute distress, well-nourished - EENT Eyes: Present: PERRL, EOM intact ENT: hearing intact, clear oral mucosa, dentition normal - Neck Neck: Present: supple, normal ROM - Respiratory Respiratory effort: normal Respiratory: bilateral: CTA - Cardiovascular Rhythm: regular Heart Sounds: Present: S1 & S2. Absent: gallop, rub - Extremities Extremities: no ischemia, No edema, Full ROM - Abdominal General gastrointestinal: soft, non-tender, non-distended, normal bowel sounds - Integumentary Integumentary: Present: clear, warm, dry - Neurologic Neurologic: CNII-XII intact, moves all extremities HEART Score - HEART Score Troponin: Troponin T < 0.010 ng/mL (0.00-0.029) 05/29/20 13:57 Results - Labs CBC & Chem 7: 05/29/20 13:57 05/29/20 14:12 Labs: Laboratory Last Values WBC 2.9 K/mm3 (4.5-11.0) L 05/29/20 13:57 RBC 4.42 M/mm3 (3.65-5.03) 05/29/20 13:57 Hgb 14.0 gm/dl (10.1-14.3) 05/29/20 13:57 Hct 41.2 % (30.3-42.9) 05/29/20 13:57 MCV 93 fl (79-97) 05/29/20 13:57 MCH 32 pg (28-32) 05/29/20 13:57 MCHC 34 % (30-34) 05/29/20 13:57 RDW 13.7 % (13.2-15.2) 05/29/20 13:57 Plt Count 249 K/mm3 (140-440) 05/29/20 13:57 Lymph % (Auto) 39.9 % (13.4-35.0) H 05/29/20 13:57 [place] % (Auto) 13.2 % (0.0-7.3) H 05/29/20 13:57 Eos % (Auto) 0.4 % (0.0-4.3) 05/29/20 13:57 Baso % (Auto) 0.4 % (0.0-1.8) 05/29/20 13:57 Lymph # (Auto) 1.1 K/mm3 (1.2-5.4) L 05/29/20 13:57 [place] # (Auto) 0.4 K/mm3 (0.0-0.8) 05/29/20 13:57 Eos # (Auto) 0.0 K/mm3 (0.0-0.4) 05/29/20 13:57 Baso # (Auto) 0.0 K/mm3 (0.0-0.1) 05/29/20 13:57 Seg Neutrophils % 46.1 % (40.0-70.0) 05/29/20 13:57 Seg Neutrophils # 1.3 K/mm3 (1.8-7.7) L 05/29/20 13:57 ESR 48 mm/Hr (0-20) 05/29/20 14:12 PT 12.2 Sec. (12.2-14.9) 05/29/20 13:57 INR 0.92 (0.87-1.13) 05/29/20 13:57 APTT 26.9 Sec. (24.2-36.6) 05/29/20 13:57 Sodium 138 mmol/L (137-145) 05/29/20 14:12 Potassium 4.1 mmol/L (3.6-5.0) 05/29/20 14:12 Chloride 105.2 mmol/L (98-107) 05/29/20 14:12 Carbon Dioxide 27 mmol/L (22-30) 05/29/20 14:12 Anion Gap 10 mmol/L 05/29/20 14:12 BUN 8 mg/dL (7-17) 05/29/20 14:12 Creatinine 0.7 mg/dL (0.6-1.2) 05/29/20 14:12 Estimated GFR > 60 ml/min 05/29/20 14:12 BUN/Creatinine Ratio 11 % 05/29/20 14:12 Glucose 91 mg/dL (65-100) 05/29/20 14:12 POC Glucose 61 mg/dL (70-105) L 05/29/20 13:38 Calcium 10.2 mg/dL (8.4-10.2) 05/29/20 14:12 Magnesium 2.00 mg/dL (1.7-2.3) 05/29/20 14:12 Total Bilirubin 0.30 mg/dL (0.1-1.2) 05/29/20 14:12 Direct Bilirubin < 0.2 mg/dL (0-0.2) 05/29/20 14:12 Indirect Bilirubin 0.1 mg/dL 05/29/20 14:12 AST 25 units/L (5-40) 05/29/20 14:12 ALT 21 units/L (7-56) 05/29/20 14:12 Alkaline Phosphatase 93 units/L (35-129) 05/29/20 14:12 Total Creatine Kinase 72 units/L (30-135) 05/29/20 14:12 CK-MB (CK-2) 4.2 ng/mL (0.0-4.0) H 05/29/20 14:12 CK-MB (CK-2) Rel Index 5.8 (0-4) H 05/29/20 14:12 Troponin T < 0.010 ng/mL (0.00-0.029) 05/29/20 13:57 C-Reactive Protein 0.10 mg/dL (0.00-1.30) 05/29/20 14:12 NT-Pro-B Natriuret Pep 360.2 pg/mL (0-900) 05/29/20 13:57 Total Protein 9.5 g/dL (6.3-8.2) H 05/29/20 14:12 Albumin 4.4 g/dL (3.9-5) 05/29/20 14:12 Albumin/Globulin Ratio 0.9 % 05/29/20 14:12 Triglycerides 57 mg/dL (2-149) 05/30/20 05:47 Cholesterol 149 mg/dL (50-199) 05/30/20 05:47 LDL Cholesterol Direct 98 mg/dL (50-130) 05/30/20 05:47 HDL Cholesterol 55 mg/dL (40-59) 05/30/20 05:47 Cholesterol/HDL Ratio 2.70 % 05/30/20 05:47 Urine Opiates Screen Negative 05/29/20 Unknown Urine Methadone Screen Negative 05/29/20 Unknown Ur Barbiturates Screen Negative 05/29/20 Unknown Ur Phencyclidine Scrn Negative 05/29/20 Unknown Ur Amphetamines Screen Negative 05/29/20 Unknown U Benzodiazepines Scrn Negative 05/29/20 Unknown Urine Cocaine Screen Negative 05/29/20 Unknown U Marijuana (THC) Screen Negative 05/29/20 Unknown Drugs of Abuse Note Disclamer 05/29/20 Unknown - Diagnostic Impressions Diagnostic Impressions: Echocardiogram 05/29/20 17:31 Transthoracic Echocardiogram Indication: Stroke BP: 130/71 HR: 65 Conclusions *Global left ventricular systolic function is normal. *Mild concentric left ventricular hypertrophy is observed. *The estimated ejection fraction is 55-60%. *A prominent eustachian valve is noted in the right atrium. *No atrial septal defected is demonstrated by agitated saline contrast. *There is no evidence of aortic regurgitation. *There is no evidence of mitral regurgitation. *There is mild tricuspid regurgitation. *The right ventricular systolic pressure is calculated at 27 mmHg. *There is trace pulmonic regurgitation. Findings Left Ventricle: The left ventricular chamber size is normal. Mild concentric left ventricular hypertrophy is observed. Global left ventricular wall motion and contractility are within normal limits. Global left ventricular systolic function is normal. The estimated ejection fraction is 55-60%. Abnormal left ventricular diastolic filling is observed, consistent with impaired relaxation. Left Atrium: The left atrial chamber size is normal. Right Ventricle: The right ventricular cavity size is normal. Right Atrium: The right atrial cavity size is normal. A prominent eustachian valve is noted in the right atrium. No atrial septal defected is demonstrated by agitated saline contrast. Aortic Valve: The aortic valve structure is normal. There is no evidence of aortic regurgitation. Mitral Valve: Mild mitral leaflet calcification is visualized. There is no evidence of mitral regurgitation. Tricuspid Valve: The tricuspid valve leaflets are normal. There is mild tricuspid regurgitation. The right ventricular systolic pressure is calculated at 27 mmHg. Pulmonic Valve: The pulmonic valve appears normal. There is trace pulmonic regurgitation. Pericardium: There is no pericardial effusion. Venous: The inferior vena cava appears normal. Contrast: Intravenous agitated saline contrast was used to assess intracardiac shunting. Measurements Chambers 2D Name Value Normal Range IVSd (2D) 1.17 cm (0.6 - 1.1) LVPWd (2D) 1.13 cm (0.6 - 1.1) LVIDd (2D) 3.69 cm (3.7 - 5.6) LVIDs (2D) 2.42 cm (2 - 3.8) LV FS (2D) 34.37 % - EF Teichholz (2D) 64.29 % - Ao root diameter (2D) 2.8 cm (2 - 3.7) Volumes/Mass Name Value Normal Range LA ESV SP 4CH (A/L) 33.13 ml - LA ESV SP 2CH (A/L) 51.47 ml - LA ESV BP (A/L) 43.24 ml - LA ESV BP (A/L) index 24.43 ml/m2 - LA ESV SP 4CH (MOD) 31.92 ml - LA ESV SP 2CH (MOD) 48.07 ml - LA ESV BP (MOD) 40.61 ml - LA ESV BP (MOD) index 22.94 ml/m2 - LV EDV SP 4CH (MOD) 47.86 ml - LV ESV SP 4CH (MOD) 21.7 ml - EF SP 4CH (MOD) 54.67 % - Diastolic/Systolic Function Name Value Normal Range MV E-wave Vmax 0.5 m/sec - MV deceleration time 267.55 msec - MV A-wave Vmax 0.75 m/sec - MV E:A ratio 0.66 ratio - Aortic Valve Name Value Normal Range AV Vmax 1.47 m/sec - AV VTI 19.36 cm - AV peak gradient 8.62 mmHg - AV mean gradient 3.86 mmHg - LVOT diameter 2.01 cm - LVOT Vmax 1.25 m/sec - LVOT VTI 21.02 cm - LVOT peak gradient 6.26 mmHg - LVOT mean gradient 3.35 mmHg - SV LVOT 66.93 ml - KAITLIN (continuity Vmax) 2.71 cm2 - KAITLIN (continuity VTI) 3.46 cm2 - Tricuspid Valve Name Value Normal Range TR Vmax 2.46 m/sec - TR peak gradient 24 mmHg - RAP 3 mmHg - RVSP 27 mmHg - Pulmonic Valve/Qp:Qs Name Value Normal Range PV Vmax 0.91 m/sec - PV peak gradient 3.33 mmHg - ND end-diastolic Vmax 1.23 m/sec - PV acceleration time 125.59 msec - [place]/IV: Voiding Method Toilet IV Catheter Type [Left Hand] INT / Saline Lock Active Medications - Current Medications Current Medications: Generic Name Dose Route Start Last Admin Trade Name Freq PRN Reason Stop Dose Admin Acetaminophen 650 mg 05/29/20 17:29 05/31/20 09:07 Acetaminophen 325 Mg Tab PO 650 mg Q4H PRN Administration Pain, Mild (1-3) Amlodipine Besylate 10 mg 05/31/20 18:00 06/01/20 09:16 Amlodipine 10 Mg Tab PO 10 mg QDAY LYNDSEY Administration Atorvastatin Calcium 40 mg 05/29/20 22:00 05/31/20 21:57 Atorvastatin 40 Mg Tab PO 40 mg QHS LYNDSEY Administration Bisacodyl 10 mg 05/29/20 17:29 Bisacodyl 10 Mg Rect Supp ND QDAY PRN Constipation Clopidogrel Bisulfate 75 mg 05/30/20 10:00 06/01/20 09:16 Clopidogrel 75 Mg Tab PO 75 mg QDAY LYNDSEY Administration Gabapentin 300 mg 05/31/20 14:00 06/01/20 06:31 Gabapentin 300 Mg Cap PO 300 mg Q8HR LYNDSEY Administration Hydralazine HCl 10 mg 05/29/20 18:42 Hydralazine 20 Mg/1 Ml Inj IV Q6HR PRN Hypertension Hydrochlorothiazide 12.5 mg 05/29/20 18:42 06/01/20 09:16 Hydrochlorothiazide 12.5 Mg Cap PO 12.5 mg QDAY LYNDSEY Administration Magnesium Hydroxide 30 ml 05/29/20 17:29 Magnesium Hydroxide (Mom) Oral Liqd Udc PO Q4H PRN Constipation Metoclopramide HCl 10 mg 02/02/21 17:29 Metoclopramide 10 Mg Tab PO Q6H PRN Nausea And Vomiting Ondansetron HCl 4 mg 05/29/20 17:29 Ondansetron 4 Mg/2 Ml Inj IV Q8H PRN Nausea And Vomiting Oxycodone/Acetaminophen 1 tab 05/31/20 10:26 05/31/20 11:35 Oxycodone /Acetaminophen 5-325mg Tab PO 1 tab Q6H PRN Administration Pain, Moderate (4-6) Promethazine HCl 25 mg 05/29/20 17:29 Promethazine 25 Mg Rect Supp ND Q6H PRN Nausea And Vomiting Sodium Chloride 10 ml 05/29/20 17:29 05/31/20 21:57 Sodium Chloride 0.9% 10 Ml Flush Syringe IV 10 ml PRN PRN Administration LINE FLUSH
--- NOTE | 2020-06-01 10:50 | Discharge Summary ---
Providers - Providers Date of Admission: 05/31/20 15:05 Date of discharge: 06/01/20 Attending physician: DIAZ BETANCOURT 05/29/20 17:29 Occupational Therapy Evaluate and Treat [CONS] Routine Comment: Reason For Exam: Neuro deficits Physical Therapy Evaluation and Treat [CONS] Routine Comment: Reason For Exam: Neuro deficits 05/29/20 17:32 Speech Therapy Evaluation and Treat [CONS] Routine Reason For Exam: swallow eval Primary care physician: ANAESTHESIOLOGIST Hospitalization Reason for admission: cva Condition: Stable Hospital course: 55 YO Female with SLE, RA, HTN presented to ED for evaluation of left-sided weakness. Patient was admitted with diagnosis of CVA/left hemiparesis and accelerated hypertension. The patient was placed on the CVA protocol. Patient was seen by telemetry neurologist but not deemed a candidate for TPA. MRI reveals acute right medullary infarct. Echocardiogram revealed global left ventricular systolic function normal and mild concentric left ventricular hypertrophy. EF 55 to 60%. No ASD. Right ventricular systolic pressure calculated at 27 mmHg. Carotid Dopplers negative. Physical therapy evaluation recommended home health PT and hemiwalker. The patient was discharged with Plavix given allergy to aspirin and statin. Dedicated discharge time 35 minutes . Disposition: DC- TO HOME OR SELFCARE Time spent for discharge: 35 - Discharge Diagnoses (1) Accelerated hypertension Status: Acute (2) CVA (cerebral vascular accident) Status: Acute Qualifiers: CVA mechanism: occlusion Precerebral and cerebral artery: posterior cerebral artery Laterality of affected vessel: left Qualified Code(s): I63.532 - Cerebral infarction due to unspecified occlusion or stenosis of left posterior cerebral artery Core Measure Documentation - Palliative Care Palliative Care/ Comfort Measures: Not Applicable - Core Measures Any of the following diagnoses?: none Exam - Constitutional Vitals: Temp Pulse Resp BP Pulse Ox 98.0 F 70 18 144/88 97 06/01/20 07:54 06/01/20 10:00 06/01/20 10:00 06/01/20 09:16 06/01/20 10:00 General appearance: Present: no acute distress, well-nourished - EENT Eyes: Present: PERRL ENT: hearing intact, clear oral mucosa - Neck Neck: Present: supple, normal ROM - Respiratory Respiratory effort: normal Respiratory: bilateral: CTA - Cardiovascular Heart Sounds: Present: S1 & S2. Absent: rub, click - Extremities Extremities: pulses symmetrical, No edema Peripheral Pulses: within normal limits - Abdominal General gastrointestinal: Present: soft, non-tender, non-distended, normal bowel sounds Female genitourinary: Present: normal - Integumentary Integumentary: Present: clear, warm, dry - Musculoskeletal Musculoskeletal: gait normal, strength equal bilaterally - Psychiatric Psychiatric: appropriate mood/affect, intact judgment & insight - Neurologic Neurologic: CNII-XII intact, moves all extremities Plan Activity: advance as tolerated Weight Bearing Status: Weight Bear as Tolerated Diet: low fat, low cholesterol, low salt Special Instructions: physical therapy, home health RN Durable Medical Equipment Needed Upon Discharge: other (Hemiwalker) Follow up with: PRIMARY CARE, [Primary Care Provider] - 3-5 Days Prescriptions: amLODIPine 10 mg PO QDAY #30 tablet Gabapentin 300 mg PO Q8HR #90 capsule hydroCHLOROthiazide [HCTZ] 12.5 mg PO QDAY #30 capsule AtorvaSTATin [Lipitor] 40 mg PO QHS #30 tablet Clopidogrel [Plavix] 75 mg PO QDAY #30 tablet
[2020-06-01 12:09] VITALS: BP 139/87
== END 2020-06-01 12:33 | disposition home health service (06) | DRG 65 ==
LOC: ED 13:27 → 4A 17:29 → OBSVTOIN 05-31 15:05
PROVIDERS: ADMIT Internal Medicine; ATTEND Hospitalist
DX: I63.532 Cerebral infarction due to unspecified occlusion or stenosis of left posterior cerebral artery (principal); G81.94 Hemiplegia, unspecified affecting left nondominant side; M32.9 Systemic lupus erythematosus, unspecified; M06.9 Rheumatoid arthritis, unspecified; I10 Essential (primary) hypertension; R29.708 NIHSS score 8; Z88.6 Allergy status to analgesic agent; Z88.0 Allergy status to penicillin; Z88.2 Allergy status to sulfonamides; Z90.49 Acquired absence of other specified parts of digestive tract; Z82.49 Family history of ischemic heart disease and other diseases of the circulatory system
CPT/HCPCS: 36415; 70450; 70551; 71045; 80048; 80053; 80061; 80076; 80307; 82550; 82553; 82962; 83735; 83880; 84484; 85025; 85610; 85652; 85730; 86140; 93005; 93306; 93880; G0378; A9270-GY

== ENCOUNTER 2020-06-27 16:56 | Observation (INO) | payer OTHER ==
--- NOTE | 2020-06-27 17:07 | Event Note ---
ED Screening Note Date of service: 06/27/20 Time: 17:06 ED Screening Note: Patient presents with complaints of left-sided weakness x4 days History of CVA and chronic left-sided weakness, however patient states weakness is worse than normal Patient did follow-up with her PCP who initially thought the weakness was due to a lupus flare, however has now referred her to the ED for worsening symptoms + Left-sided headache This initial assessment/diagnostic orders/clinical plan/treatment(s) is/are subject to change based on patients health status, clinical progression and re- assessment by fellow clinical providers in the ED. Further treatment and workup at subsequent clinical providers discretion. Patient/guardian urged not to elope from the ED as their condition may be serious if not clinically assessed and managed. Initial orders include: stroke protocol
--- NOTE | 2020-06-27 17:31 | Emergency Department Report ---
ED Neuro Deficit HPI - General Chief Complaint: Neuro Symptoms/Deficit Stated Complaint: WEAKNESS Time Seen by Provider: 06/27/20 17:01 Source: patient Mode of arrival: Wheelchair Limitations: No Limitations - History of Present Illness Initial Comments: Patient is a 55-year-old female that presents emergency room with complaints of worsening left-sided weakness. Patient states she had a stroke in the past and left-sided feels more weak. Patient states her symptoms started 4 days ago. Patient states that her left arm and left leg are feeling more heavy. Patient states she saw her primary care yesterday and he thought it was her lupus. Patient states the weakness was continued so she came to the emergency room. Patient also complains of left arm pain 1 her left arm is touched. Patient states the pain in her left arm is an 8 out of 10. Patient denies headache. Patient denies blurry vision. Patient denies weakness to the right side. Patient denies chest pain and shortness of breath. Patient denies recent travel. Patient denies recent international travel. Patient denies exposure to the novel coronavirus. Patient denies sick contacts. Patient denies fever and chills. Patient denies cough. Patient denies diarrhea. Patient denies coming in contact with anybody with symptoms of the novel coronavirus. -: Sudden - Related Data Home Medications: Home Medications Medication Instructions Recorded Confirmed Last Taken DULoxetine 20 mg PO QDAY 05/30/20 05/30/20 Unknown HCTZ 25 mg PO QAM 05/30/20 05/30/20 Unknown Neurontin 300 mg PO QDAY 05/30/20 05/30/20 Unknown Norvasc 10 mg PO QDAY 05/30/20 05/30/20 Unknown Previous Rx's Medication Instructions Recorded Last Taken Type AtorvaSTATin [Lipitor] 40 mg PO QHS #30 tablet 06/01/20 Unknown Rx Clopidogrel [Plavix] 75 mg PO QDAY #30 tablet 06/01/20 Unknown Rx Gabapentin 300 mg PO Q8HR #90 capsule 06/01/20 Unknown Rx amLODIPine 10 mg PO QDAY #30 tablet 06/01/20 Unknown Rx hydroCHLOROthiazide [HCTZ] 12.5 mg PO QDAY #30 capsule 06/01/20 Unknown Rx Allergies/Adverse Reactions: Allergies Allergy/AdvReac Type Severity Reaction Status Date / Time aspirin Allergy Unknown Verified 05/29/20 13:31 lisinopril Allergy Unknown Verified 05/29/20 13:31 Penicillins Allergy Swelling Verified 05/29/20 13:31 Sulfa (Sulfonamide Allergy Unknown Verified 05/29/20 13:31 Antibiotics) ED Review of Systems ROS: Stated complaint: WEAKNESS Other details as noted in HPI Constitutional: weakness. denies: chills, fever Eyes: denies: eye pain, eye discharge, vision change ENT: denies: ear pain, throat pain Respiratory: denies: cough, shortness of breath, wheezing Cardiovascular: denies: chest pain, palpitations Endocrine: no symptoms reported Gastrointestinal: denies: abdominal pain, nausea, diarrhea Genitourinary: denies: urgency, dysuria, discharge Musculoskeletal: denies: back pain, joint swelling, arthralgia Skin: denies: rash, lesions Neurological: as per HPI, weakness. denies: headache, paresthesias Psychiatric: denies: anxiety, depression Hematological/Lymphatic: denies: easy bleeding, easy bruising ED Past Medical Hx - Past Medical History Previous Medical History?: Yes Hx Hypertension: Yes Hx CVA: Yes (05/27/2020- LEFT-SIDED WEAKNESS) Hx Arthritis: Yes (RA) Additional medical history: LUPUS/ THYROID - Surgical History Past Surgical History?: Yes Hx Cholecystectomy: Yes - Family History Family history: no significant - Social History Smoking Status: Never Smoker Substance Use Type: None - Medications Home Medications: Home Medications Medication Instructions Recorded Confirmed Last Taken Type DULoxetine 20 mg PO QDAY 05/30/20 05/30/20 Unknown History HCTZ 25 mg PO QAM 05/30/20 05/30/20 Unknown History Neurontin 300 mg PO QDAY 05/30/20 05/30/20 Unknown History Norvasc 10 mg PO QDAY 05/30/20 05/30/20 Unknown History AtorvaSTATin [Lipitor] 40 mg PO QHS #30 tablet 06/01/20 Unknown Rx Clopidogrel [Plavix] 75 mg PO QDAY #30 tablet 06/01/20 Unknown Rx Gabapentin 300 mg PO Q8HR #90 capsule 06/01/20 Unknown Rx amLODIPine 10 mg PO QDAY #30 tablet 06/01/20 Unknown Rx hydroCHLOROthiazide [HCTZ] 12.5 mg PO QDAY #30 capsule 06/01/20 Unknown Rx ED Neuro Physical Exam - General Limitations: No Limitations General appearance: alert, in no apparent distress Suspected Stroke: Yes - Head Head exam: Present: atraumatic, normocephalic - Eye Eye exam: Present: normal appearance - ENT ENT exam: Present: mucous membranes moist - Neck Neck exam: Present: normal inspection - Respiratory Respiratory exam: Present: normal lung sounds bilaterally. Absent: respiratory distress - Cardiovascular Cardiovascular Exam: Present: regular rate, normal rhythm. Absent: systolic murmur, diastolic murmur, rubs, gallop - GI/Abdominal GI/Abdominal exam: Present: soft, normal bowel sounds - Extremities Exam Extremities exam: Present: normal inspection - Back Exam Back exam: Present: normal inspection - Neurological Exam Neurological exam: Present: alert, oriented X3 - NIHSS Assessment Interval: Baseline 1a. Level of Consciousness: alert/keenly responsive 1b. LOC Questions: answers both correctly 1c. LOC Commands: performs tasks correctly 2. Best Gaze: normal 3. Visual: no visual loss 4. Facial Palsy: normal symmetrical movement 5b. Motor Arm Right: no drift 5a. Motor Arm Left: drift 6a. Motor Leg Left: drift 6b. Motor Leg Right: no drift 7. Limb Ataxia: absent 8. Sensory: normal 9. Best Language: no aphasia 10. Dysarthria: normal 11. Extinction/Inattention: no abnormality Total Score: 2 Stroke Severity: Minor Stroke - Psychiatric Psychiatric exam: Present: normal affect, normal mood - Skin Skin exam: Present: warm, dry, intact, normal color. Absent: rash ED Course Vital Signs 06/27/20 06/27/20 06/27/20 17:02 19:35 19:46 Temperature 98.4 F Pulse Rate 69 Respiratory 18 Rate Blood Pressure 180/94 175/95 O2 Sat by Pulse 98 99 93 Oximetry 06/27/20 06/27/20 06/27/20 20:00 20:16 20:30 Temperature Pulse Rate Respiratory Rate Blood Pressure 175/95 168/96 168/96 O2 Sat by Pulse 100 100 99 Oximetry 06/27/20 06/27/20 06/27/20 20:46 21:00 21:16 Temperature Pulse Rate Respiratory Rate Blood Pressure 185/101 185/101 180/96 O2 Sat by Pulse 98 100 97 Oximetry 06/27/20 21:30 Temperature Pulse Rate Respiratory Rate Blood Pressure 180/96 O2 Sat by Pulse 99 Oximetry - Reevaluation(s) Reevaluation #1: I discussed all results with patient. I discussed plan of care with patient. Patient agrees with plan of care and admission. Patient to be admitted to the hospitalist service. 06/27/20 21:24 - Consultations Consultation #1: Hospitalist consulted for admission. Hospitalist to admit patient. 06/27/20 21:27 - Lab Data Result diagrams: 06/27/20 17:40 06/27/20 17:40 Lab Results 06/27/20 06/27/20 06/27/20 Range/Units 17:01 17:40 17:40 WBC 2.8 L (4.5-11.0) K/mm3 RBC 4.10 (3.65-5.03) M/mm3 Hgb 12.9 (10.1-14.3) gm/dl Hct 38.5 (30.3-42.9) % MCV 94 (79-97) fl MCH 32 (28-32) pg MCHC 34 (30-34) % RDW 13.8 (13.2-15.2) % Plt Count 189 (140-440) K/mm3 Parke % (Auto) Atomic Process Engineer Add Manual Diff Complete Total Counted 100 Seg Neutrophils % Atomic Process Engineer Seg Neuts % (Manual) 34.0 L (40.0-70.0) % Lymphocytes % (Manual) 39.0 H (13.4-35.0) % Monocytes % (Manual) 23.0 H (0.0-7.3) % Eosinophils % (Manual) 3.0 (0.0-4.3) % Basophils % (Manual) 1.0 (0.0-1.8) % Nucleated RBC % Not Reportable Seg Neutrophils # Man 1.0 L (1.8-7.7) K/mm3 Band Neutrophils # 0.0 K/mm3 Lymphocytes # (Manual) 1.1 L (1.2-5.4) K/mm3 Abs React Lymphs (Man) 0.0 K/mm3 Monocytes # (Manual) 0.6 (0.0-0.8) K/mm3 Eosinophils # (Manual) 0.1 (0.0-0.4) K/mm3 Basophils # (Manual) 0.0 (0.0-0.1) K/mm3 Metamyelocytes # 0.0 K/mm3 Myelocytes # 0.0 K/mm3 Promyelocytes # 0.0 K/mm3 Blast Cells # 0.0 K/mm3 WBC Morphology Not Reportable Hypersegmented Neuts Not Reportable Hyposegmented Neuts Not Reportable Hypogranular Neuts Not Reportable Smudge Cells Not Reportable Toxic Granulation Not Reportable Toxic Vacuolation Not Reportable Dohle Bodies Not Reportable Pelger-Huet Anomaly Not Reportable Maria Elena Rods Not Reportable Platelet Estimate Not Reportable Clumped Platelets Not Reportable Plt Clumps, EDTA Not Reportable Large Platelets Not Reportable Giant Platelets Not Reportable Platelet Satelliting Not Reportable Plt Morphology Comment Not Reportable RBC Morphology Normal Dimorphic RBCs Not Reportable Polychromasia Not Reportable Hypochromasia Not Reportable Poikilocytosis Not Reportable Anisocytosis Not Reportable Microcytosis Not Reportable Macrocytosis Not Reportable Spherocytes Not Reportable Pappenheimer Bodies Not Reportable Sickle Cells Not Reportable Target Cells Not Reportable Tear Drop Cells Not Reportable Ovalocytes Not Reportable Helmet Cells Not Reportable [place] Bodies Not Reportable [place] Rings Not Reportable Jefe Cells Not Reportable Bite Cells Not Reportable Crenated Cell Not Reportable Elliptocytes Not Reportable Acanthocytes (Spur) Not Reportable Rouleaux Not Reportable Hemoglobin C Crystals Not Reportable Schistocytes Not Reportable Malaria parasites Not Reportable Jeremy Bodies Not Reportable Hem Pathologist Commnt No PT 12.1 L (12.2-14.9) Sec. INR 0.91 (0.87-1.13) APTT 26.8 (24.2-36.6) Sec. Thrombin Time 17.5 (15.1-19.6) Sec. Sodium (137-145) mmol/L Potassium (3.6-5.0) mmol/L Chloride (98-107) mmol/L Carbon Dioxide (22-30) mmol/L Anion Gap mmol/L BUN (7-17) mg/dL Creatinine (0.6-1.2) mg/dL Estimated GFR ml/min BUN/Creatinine Ratio % Glucose (65-100) mg/dL POC Glucose 75 (70-105) mg/dL Calcium (8.4-10.2) mg/dL Total Bilirubin (0.1-1.2) mg/dL AST (5-40) units/L ALT (7-56) units/L Alkaline Phosphatase (35-129) units/L Total Creatine Kinase (30-135) units/L CK-MB (CK-2) (0.0-4.0) ng/mL CK-MB (CK-2) Rel Index (0-4) Troponin T (0.00-0.029) ng/mL Total Protein (6.3-8.2) g/dL Albumin (3.9-5) g/dL Albumin/Globulin Ratio % // Range/Units 17:40 WBC (4.5-11.0) K/mm3 RBC (3.65-5.03) M/mm3 Hgb (10.1-14.3) gm/dl Hct (30.3-42.9) % MCV (79-97) fl MCH (28-32) pg MCHC (30-34) % RDW (13.2-15.2) % Plt Count (140-440) K/mm3 Parke % (Auto) Add Manual Diff Total Counted Seg Neutrophils % Seg Neuts % (Manual) (40.0-70.0) % Lymphocytes % (Manual) (13.4-35.0) % Monocytes % (Manual) (0.0-7.3) % Eosinophils % (Manual) (0.0-4.3) % Basophils % (Manual) (0.0-1.8) % Nucleated RBC % Seg Neutrophils # Man (1.8-7.7) K/mm3 Band Neutrophils # K/mm3 Lymphocytes # (Manual) (1.2-5.4) K/mm3 Abs React Lymphs (Man) K/mm3 Monocytes # (Manual) (0.0-0.8) K/mm3 Eosinophils # (Manual) (0.0-0.4) K/mm3 Basophils # (Manual) (0.0-0.1) K/mm3 Metamyelocytes # K/mm3 Myelocytes # K/mm3 Promyelocytes # K/mm3 Blast Cells # K/mm3 WBC Morphology Hypersegmented Neuts Hyposegmented Neuts Hypogranular Neuts Smudge Cells Toxic Granulation Toxic Vacuolation Dohle Bodies Pelger-Huet Anomaly Maria Elena Rods Platelet Estimate Clumped Platelets Plt Clumps, EDTA Large Platelets Giant Platelets Platelet Satelliting Plt Morphology Comment RBC Morphology Dimorphic RBCs Polychromasia Hypochromasia Poikilocytosis Anisocytosis Microcytosis Macrocytosis Spherocytes Pappenheimer Bodies Sickle Cells Target Cells Tear Drop Cells Ovalocytes Helmet Cells [place] Bodies [place] Rings [place] Cells Bite Cells Crenated Cell Elliptocytes Acanthocytes (Spur) Rouleaux Hemoglobin C Crystals Schistocytes Malaria parasites Jeremy Bodies Hem Pathologist Commnt PT (12.2-14.9) Sec. INR (0.87-1.13) APTT (24.2-36.6) Sec. Thrombin Time (15.1-19.6) Sec. Sodium 137 (137-145) mmol/L Potassium 4.2 (3.6-5.0) mmol/L Chloride 104.1 (98-107) mmol/L Carbon Dioxide 24 (22-30) mmol/L Anion Gap 13 mmol/L BUN 13 (7-17) mg/dL Creatinine 0.8 (0.6-1.2) mg/dL Estimated GFR > 60 ml/min BUN/Creatinine Ratio 16 % Glucose 70 (65-100) mg/dL POC Glucose (70-105) mg/dL Calcium 10.0 (8.4-10.2) mg/dL Total Bilirubin 0.30 (0.1-1.2) mg/dL AST 21 (5-40) units/L ALT 19 (7-56) units/L Alkaline Phosphatase 84 (35-129) units/L Total Creatine Kinase 49 (30-135) units/L CK-MB (CK-2) 2.4 (0.0-4.0) ng/mL CK-MB (CK-2) Rel Index 4.8 H (0-4) Troponin T < 0.010 (0.00-0.029) ng/mL Total Protein 8.0 (6.3-8.2) g/dL Albumin 3.9 (3.9-5) g/dL Albumin/Globulin Ratio 1.0 % - EKG Data -: EKG Interpreted by Ga EKG shows normal: sinus rhythm, axis, intervals, QRS complexes, ST-T waves Rate: normal - Radiology Data Radiology results: report reviewed CT BRAIN: 06/27/2020 INDICATION / CLINICAL INFORMATION: acute left sided weakness. COMPARISON: MRI brain 06/01/2020 FINDINGS: BRAIN/INTRACRANIAL STRUCTURES: Unenhanced CT images of the brain were obtained. There is no definite CT evidence of acute abnormality. Chronic left parietal cortical encephalomalacia is noted, unchanged when compared to the prior MRI. On the prior exam, there was evidence of acute brainstem infarct. This is too small to identify in his chronic form by CT. There is no evidence of hemorrhage or mass. There are no abnormal extra-axial fluid collections. EXTRACRANIAL STRUCTURES: Unremarkable. IMPRESSION: No CT evidence of acute abnormality. - Medical Decision Making Patient is a 55-year-old female that presents emergency room with complaints of worsening left-sided weakness. Patient has left-sided weakness from a previous stroke however the patient stating that her left side is feeling more heavy and weaker. Patient symptoms started 4 days ago. The patient's last known well time was 4 days ago. Patient had a CT scan and a stroke TIA work-up. Patient CT scan of the head was negative for acute findings. Patient admitted to the [facility] for further evaluation treatment and stroke work-up and TIA work- up and weakness work-up. - Differential Diagnosis Weakness, TIA, CVA, worsening weakness, electrolyte imbalance, Critical Care Time: Yes Critical care time in (mins) excluding proc time.: 35 Critical care attestation.: If time is entered above; I have spent that time in minutes in the direct care of this critically ill patient, excluding procedure time. Critical Care Time: 35 minutes ED Disposition Clinical Impression: Left-sided weakness, History of CVA (cerebrovascular accident), Essential hypertension Disposition: 09 OP ADMIT IP TO THIS HOSP Is pt being admited?: Yes Does the pt Need Aspirin: No Condition: Critical Instructions: Hypertension (ED) Time of Disposition: 21:27
--- NOTE | 2020-06-27 17:39 | Cat Scan Report ---
CT BRAIN: 06/27/2020 INDICATION / CLINICAL INFORMATION: acute left sided weakness. COMPARISON: MRI brain 06/01/2020 FINDINGS: BRAIN/INTRACRANIAL STRUCTURES: Unenhanced CT images of the brain were obtained. There is no definite CT evidence of acute abnormality. Chronic left parietal cortical encephalomalacia is noted, unchanged when compared to the prior MRI. On the prior exam, there was evidence of acute brainstem infarct. This is too small to identify in hi s chronic form by CT. There is no evidence of hemorrhage or mass. There are no abnormal extra-axial fluid collections. EXTRACRANIAL STRUCTURES: Unremarkable. IMPRESSION: No CT evidence of acute abnormality. All CT scans at this location are performed using dose reduction to ALARA by means of automated expos ure control. Signer Name: Cesario Yates MD Signed: 06/27/2020 5:34 PM Workstation Name: [id number]
[2020-06-27 18:04] LABS: Hematocrit 38.5 % (30.3-42.9); Hemoglobin 12.9 gm/dl (10.1-14.3); Mean Corpuscular HGB Conc 34 % (30-34); Mean Corpuscular Volume 94 fl (79-97); Platelet Count 189 K/mm3 (140-440); Red Cell Distribution Width 13.8 % (13.2-15.2)
[2020-06-27 18:13] LABS: INR 0.91 (0.87-1.13)
[2020-06-27 18:14] LABS: Partial Thromboplastin Time 26.8 Sec. (24.2-36.6); Thrombin Time 17.5 Sec. (15.1-19.6)
[2020-06-27 18:27] LABS: Creatine Kinase MB 2.4 ng/mL (0.0-4.0)
[2020-06-27 18:28] LABS: Alanine Aminotransferase 19 units/L (7-56); Albumin 3.9 g/dL (3.9-5); BUN/Creatinine Ratio 16; Blood Urea Nitrogen 13 mg/dL (7-17); Hemolysis Index 25
[2020-06-27 19:05] LABS: Total Cells Counted 100
[2020-06-27 19:06] LABS: RBC Morphology Normal
[2020-06-27] MEDS ORDERED: MAGNESIUM HYDROXIDE (MOM) ORAL LIQD UDC PO PRN ×2 (22:13)
[2020-06-27] MEDS ORDERED: ONDANSETRON 4 MG/2 ML INJ IV PRN ×2 (22:13)
[2020-06-27] MEDS ORDERED: METOCLOPRAMIDE 10 MG TAB PO PRN (22:13)
[2020-06-27] MEDS ORDERED: PROMETHAZINE 25 MG RECT SUPP PR PRN (22:13)
[2020-06-27] MEDS ORDERED: ACETAMINOPHEN 325 MG TAB PO PRN (22:13)
--- NOTE | 2020-06-27 22:25 | History and Physical Report ---
History of Present Illness Date of examination: 06/27/20 Date of admission: 06/27/20 21:37 Chief complaint: Left sided weakness History of present illness: 55-year-old female with known history of hypertension, lupus and history of CVA in the past presenting to the emergency room today complaining of left-sided weakness. Patient states that symptoms started about 4 days ago and was hoping that it would get better however symptoms got worse today. She saw her primary care physician yesterday and thought it was a lupus however left-sided weakness continued to get worse. Patient denies any headache or dizziness, no blurry vision, no nausea vomiting, no chest pain or shortness of breath, no fever or chills, no difficulty with swallowing or with speech. Patient also indicates that she has had some pain on the left upper extremity. Denies any fall or trauma to the left upper extremity. She denies any sick contacts and no recent travel. Denies any contact with anyone with COVID-19.. Work-up in the emergency room today: CT scan of the head did not reveal any acute abnormality. Patient is being admitted for possible CVA. Past History Past Medical History: arthritis (Rheumatoid arthritis), hypertension, hypoth yroidism, other (Lupus,) Past Surgical History: cholecystectomy Social history: no significant social history Family history: no significant family history Medications and Allergies Allergies Allergy/AdvReac Type Severity Reaction Status Date / Time aspirin Allergy Unknown Verified 05/29/20 13:31 lisinopril Allergy Unknown Verified 05/29/20 13:31 Penicillins Allergy Swelling Verified 05/29/20 13:31 Sulfa (Sulfonamide Allergy Unknown Verified 05/29/20 13:31 Antibiotics) Home Medications Medication Instructions Recorded Confirmed Last Taken Type DULoxetine 20 mg PO QDAY 05/30/20 05/30/20 Unknown History HCTZ 25 mg PO QAM 05/30/20 05/30/20 Unknown History Neurontin 300 mg PO QDAY 05/30/20 05/30/20 Unknown History Norvasc 10 mg PO QDAY 05/30/20 05/30/20 Unknown History AtorvaSTATin [Lipitor] 40 mg PO QHS #30 tablet 06/01/20 Unknown Rx Clopidogrel [Plavix] 75 mg PO QDAY #30 tablet 06/01/20 Unknown Rx Gabapentin 300 mg PO Q8HR #90 capsule 06/01/20 Unknown Rx amLODIPine 10 mg PO QDAY #30 tablet 06/01/20 Unknown Rx hydroCHLOROthiazide [HCTZ] 12.5 mg PO QDAY #30 capsule 06/01/20 Unknown Rx Review of Systems Constitutional: no fever, no chills, no weakness Ears, nose, mouth and throat: no nasal congestion, no sore throat Cardiovascular: no chest pain, no palpitations Respiratory: no cough, no shortness of breath Gastrointestinal: no abdominal pain, no nausea, no vomiting, no diarrhea Genitourinary Female: no pelvic pain, no flank pain, no dysuria, no hematuria Musculoskeletal: no neck pain Integumentary: no rash, no pruritis Neurological: no headaches, no confusion ( ) Psychiatric: no anxiety, no depression Exam - Constitutional Vitals: Temp Pulse Resp BP Pulse Ox 98.4 F 75 18 143/113 98 06/27/20 17:02 06/27/20 22:16 06/27/20 22:16 06/27/20 22:16 06/27/20 22:16 General appearance: Present: no acute distress, well-nourished - EENT Eyes: Present: PERRL, EOM intact. Absent: scleral icterus ENT: hearing intact, clear oral mucosa, dentition normal - Neck Neck: Present: supple, normal ROM - Respiratory Respiratory effort: normal Respiratory: bilateral: CTA - Cardiovascular Rhythm: regular Heart Sounds: Present: S1 & S2. Absent: gallop, systolic murmur, diastolic murmur, rub, click - Extremities Extremities: no ischemia, pulses intact, pulses symmetrical, No edema, normal temperature, normal color, abnormal (Left sided weakness) Peripheral Pulses: within normal limits - Abdominal General gastrointestinal: Present: soft, non-tender, non-distended, normal bowel sounds. Absent: mass - Integumentary Integumentary: Present: clear, warm, dry. Absent: rash - Musculoskeletal Musculoskeletal: strength equal bilaterally - Psychiatric Psychiatric: appropriate mood/affect, intact judgment & insight, memory intact, cooperative - Neurologic Neurologic: CNII-XII intact, no focal deficits, moves all extremities, other (Motor 2/5 on left upper and left lower extremity) HEART Score - HEART Score Troponin: Troponin T < 0.010 ng/mL (0.00-0.029) 06/27/20 17:40 Results - Labs CBC & Chem 7: 06/27/20 17:40 06/27/20 17:40 Labs: Abnormal lab results 06/27/20 06/27/20 06/27/20 Range/Units 17:40 17:40 17:40 WBC 2.8 L (4.5-11.0) K/mm3 Seg Neuts % (Manual) 34.0 L (40.0-70.0) % Lymphocytes % (Manual) 39.0 H (13.4-35.0) % Monocytes % (Manual) 23.0 H (0.0-7.3) % Seg Neutrophils # Man 1.0 L (1.8-7.7) K/mm3 Lymphocytes # (Manual) 1.1 L (1.2-5.4) K/mm3 PT 12.1 L (12.2-14.9) Sec. CK-MB (CK-2) Rel Index 4.8 H (0-4) Assessment and Plan - Patient Problems (1) Left-sided weakness Current Visit: Yes Status: Acute Plan to address problem: Patient admitted and placed on telemetry. We will schedule patient for MRI of the brain, carotid Doppler and echocardiogram. Consult will be placed to neurology for evaluation. (2) Essential hypertension Current Visit: Yes Status: Acute Plan to address problem: We will resume routine home medications and monitor vital signs closely. (3) Rheumatoid arthritis Current Visit: No Status: Acute Plan to address problem: Patient will be continued on her routine home medications once reconciled. (4) DVT prophylaxis Current Visit: No Status: Acute Plan to address problem: Patient placed on subcutaneous Lovenox. (5) Full code status Current Visit: Yes Status: Acute Plan to address problem: Patient is a full code.
[2020-06-27] MEDS: ACETAMINOPHEN 325 MG TAB PO PRN (23:24)
[2020-06-28] MEDS: GABAPENTIN 300 MG CAP PO SCH ×2 (05:28→16:05)
[2020-06-28 05:34] LABS: Hematocrit 35.8 % (30.3-42.9); Hemoglobin 11.9 gm/dl (10.1-14.3); Mean Corpuscular HGB Conc 33 % (30-34); Mean Corpuscular Volume 95 fl (79-97); Platelet Count 200 K/mm3 (140-440); Red Blood Count 3.78 M/mm3 (3.65-5.03); Red Cell Distribution Width 14.1 % (13.2-15.2)
[2020-06-28 05:38] LABS: Basophils % (Auto) 0.4 % (0.0-1.8); Eosinophils % (Auto) 1.8 % (0.0-4.3); Lymphocytes % (Auto) 43.2 % (13.4-35.0); Monocytes % (Auto) 15.6 % (0.0-7.3)
[2020-06-28 05:39] LABS: Monocytes # (Auto) 0.4 K/mm3 (0.0-0.8)
[2020-06-28 05:54] LABS: Blood Urea Nitrogen 14 mg/dL (7-17); Calcium 9.8 mg/dL (8.4-10.2); HDL Cholesterol 64 mg/dL (40-59); Hemolysis Index 3; LDL Cholesterol,Direct 100 mg/dL (50-130)
[2020-06-28 06:04] LABS: BUN/Creatinine Ratio 20
[2020-06-28] MEDS ORDERED: hydroCHLOROthiazide 12.5 MG CAP PO SCH (10:00)
[2020-06-28] MEDS ORDERED: amLODIPine 10 MG TAB PO SCH (10:00)
[2020-06-28] MEDS ORDERED: CLOPIDOGREL 75 MG TAB PO SCH (10:00)
[2020-06-28] MEDS: ACETAMINOPHEN 325 MG TAB PO PRN (10:48)
--- NOTE | 2020-06-28 10:51 | Magnetic Resonance Report ---
MRI BRAIN WITHOUT CONTRAST INDICATION / CLINICAL INFORMATION: stroke. TECHNIQUE: Multiplanar, multisequence MR images of the brain were obtained. COMPARISON: MRI brain 06/01/2020 CT head 06/27/2020 FINDINGS: BRAIN / INTRACRANIAL CONTENTS: A small focus of residual increased signal intensity is observed in the carisa to the right of the midl ine on diffusion weighted (B 1000) images. A right-sided pontine infarction was demonstrated in this location on MRI brain dated 06/01/2020. There is increased FLAIR and T2-weighted signal change in this same distribution reflecting the expected evolutionary changes of the pontine infarction. Ventricles and cortical sulci are normal in size and configuration. There is no mass effect. No evide nce of intracranial hemorrhage or extra-axial fluid collection is seen. Nonspecific foci of white mat ter hyperintensity are observed in both cerebral hemispheres. A rind of periventricular hyperintensit ies also observed. Is of microvascular ischemia. Abnormal brain parenchymal signal intensity is also observed in the medial aspect of the left occipital lobe and left parietal lobe secondary to remote l eft posterior cerebral artery infarction, unchanged from prior study. No additional areas of abnormal brain parenchymal signal intensity are identified. Diffusion weighted scans are otherwise negative. There is no indication of acute ischemic injury. The cerebellum has an unremarkable appearance. Incidental note is made of a negative cisterna magna. MIDLINE STRUCTURES:No abnormalities are seen to involve the pituitary gland. Pineal region has an unr emarkable appearance. CRANIOCERVICAL JUNCTION: No abnormalities are identified at the craniocervical junction. VASCULAR FLOW-VOIDS: Normal flow-voids are present within the major intracranial vessels. ORBITS: The orbits have an unremarkable appearance. SINUSES / MASTOIDS: There is no indication of inflammatory disease in the paranasal sinuses or mastoi d air cells. IMPRESSION: 1. Residual signal changes at the site of the patient's recently documented right-sided pontine infar ction. 2. Remote left TELEMARKETER infarction with encephalomalacia in the medial aspect of the left occipital and pa rietal lobes. 3. No indication of new intracranial abnormality in comparison to study dated 06/01/2020. Signer Name: Joe Christianson MD Signed: 06/28/2020 10:47 AM Workstation Name: [id number]
--- NOTE | 2020-06-28 14:15 | Discharge Summary ---
Providers - Providers Date of Admission: 06/27/20 21:37 Date of discharge: 06/28/20 Attending physician: KATTY FRANCISCO 06/27/20 Consult to Physician [CONS] Routine Comment: Consulting Provider: GRACIELA MCGRATH Physician Instructions: Reason For Exam: CVA 06/27/20 22:13 Consult to Dietitian/Nutrition [CONS] Routine Physician Instructions: Reason For Exam: Reason for Consult: Nutrition Recommendations Reason for Consult: Diet education Occupational Therapy Evaluate and Treat [CONS] Routine Comment: Reason For Exam: Neuro deficits Physical Therapy Evaluation and Treat [CONS] Routine Comment: Reason For Exam: Neuro deficits 06/27/20 22:17 Speech Therapy Evaluation and Treat [CONS] Routine Reason For Exam: swallow eval Primary care physician: WATER LEAK REPAIRER Hospitalization Condition: Critical Hospital course: 55-year-old female with known history of hypertension, lupus and history of CVA in the past presented to the emergency room with complaining of left-sided weakness for 4 days which progressively got worse. Patient also indicates that she has had some pain on the left upper extremity. Denies any fall or trauma to the left upper extremity. She denies any sick contacts and no recent travel. Denies any contact with anyone with COVID-19.. Work-up in the emergency room including CT scan of the head did not reveal any acute abnormality. Patient was admitted for possible CVA. 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 Patient had carotid Doppler and 2D echocardiogram about a month ago showed less than 50% stenosis bilaterally and preserved EF Patient to discharge home today with home health PT OT once cleared by neurology. Discharge diagnosis: Left-sided questionable weakness and throbbing pain -Likely due to neuropathy, patient already on Neurontin -Patient had left-sided weakness during prior CVA, no new infarct on MRI -PT recommended home health, continue home health PT OT, and home dose of Neurontin Essential hypertension, continue home meds Rheumatoid arthritis, continue routine home medications and outpatient follow-up History of old CVA, continue Plavix and statin. Patient is allergic to aspirin Disposition: [id number] HOME UNDER HOME TH Time spent for discharge: 34 minutes Core Measure Documentation - Palliative Care Palliative Care/ Comfort Measures: Not Applicable - Core Measures Any of the following diagnoses?: history only Exam - Physical Exam Narrative exam: General appearance: Present: no acute distress, well-nourished - EENT Eyes: Present: PERRL, EOM intact. Absent: scleral icterus ENT: hearing intact, clear oral mucosa, dentition normal - Neck Neck: Present: supple, normal ROM - Respiratory Respiratory effort: normal Respiratory: bilateral: CTA - Cardiovascular Rhythm: regular Heart Sounds: Present: S1 & S2. Absent: gallop, systolic murmur, diastolic murmur, rub, click - Extremities Extremities: no ischemia, pulses intact, pulses symmetrical, No edema, normal temperature, normal color, abnormal (Left sided weakness) Peripheral Pulses: within normal limits - Abdominal General gastrointestinal: Present: soft, non-tender, non-distended, normal bowel sounds. Absent: mass - Integumentary Integumentary: Present: clear, warm, dry. Absent: rash - Musculoskeletal Musculoskeletal: strength equal bilaterally - Psychiatric Psychiatric: appropriate mood/affect, intact judgment & insight, memory intact, cooperative - Neurologic Neurologic: CNII-XII intact, no focal deficits, moves all extremities, other (Motor 4/5 on left upper and left lower extremity) - Constitutional Vitals: Temp Pulse Resp BP Pulse Ox 97.4 F L 65 17 103/69 100 06/28/20 04:17 06/28/20 13:45 06/28/20 10:00 06/28/20 10:49 06/28/20 10:05 Plan Activity: fall precautions Weight Bearing Status: Non-Weight Bearing Diet: low fat, low salt Special Instructions: physical therapy, home health RN Additional Instructions: Please follow-up with medical laboratory technical officer in 1 to 2 weeks Follow up with: YECENIA ELMORE MD [Primary Care Provider] - 7 Days CHEMA LYNCH MD [Staff Physician] - 7 Days
--- NOTE | 2020-06-28 14:46 | Consultation ---
History of Present Illness Consult date: 06/28/20 History of present illness: I am cancelling this neurology consult as the patient is complaining of throbbing pain of the left leg. Past History Past Medical History: arthritis (Rheumatoid arthritis), hypertension, hypothyroidism, other (Lupus,) Past Surgical History: cholecystectomy Social history: no significant social history Family history: no significant family history Medications and Allergies Allergies Allergy/AdvReac Type Severity Reaction Status Date / Time aspirin Allergy Unknown Verified 05/29/20 13:31 lisinopril Allergy Unknown Verified 05/29/20 13:31 Penicillins Allergy Swelling Verified 05/29/20 13:31 Sulfa (Sulfonamide Allergy Unknown Verified 05/29/20 13:31 Antibiotics) Home Medications Medication Instructions Recorded Confirmed Last Taken Type DULoxetine 20 mg PO QDAY 05/30/20 05/30/20 Unknown History Neurontin 300 mg PO QDAY 05/30/20 05/30/20 Unknown History Norvasc 10 mg PO QDAY 05/30/20 05/30/20 Unknown History AtorvaSTATin [Lipitor] 40 mg PO QHS #30 tablet 06/01/20 Unknown Rx Clopidogrel [Plavix] 75 mg PO QDAY #30 tablet 06/01/20 Unknown Rx Gabapentin 300 mg PO Q8HR #90 capsule 06/01/20 Unknown Rx amLODIPine 10 mg PO QDAY #30 tablet 06/01/20 Unknown Rx hydroCHLOROthiazide [HCTZ] 12.5 mg PO QDAY #30 capsule 06/01/20 Unknown Rx Active Meds: Active Medications Acetaminophen (Acetaminophen 325 Mg Tab) 650 mg PO Q4H PRN PRN Reason: Pain MILD(1-3)/Fever >100.5/MONTALVO Last Admin: 06/28/20 10:48 Dose: 650 mg Documented by: Amlodipine Besylate (Amlodipine 10 Mg Tab) 10 mg PO QDAY [facility] Last Admin: 06/28/20 10:49 Dose: 10 mg Documented by: Atorvastatin Calcium (Atorvastatin 40 Mg Tab) 40 mg PO QHS [facility] Bisacodyl (Bisacodyl 10 Mg Rect Supp) [address] QDAY PRN PRN Reason: Constipation Clopidogrel Bisulfate (Clopidogrel 75 Mg Tab) 75 mg PO QDAY [facility] Last Admin: 06/28/20 10:42 Dose: 75 mg Documented by: Enoxaparin Sodium (Enoxaparin 40 Mg/0.4 Ml Inj) 40 mg SUB-Q QDAY@2200 [facility]; Protocol Gabapentin (Gabapentin 300 Mg Cap) 300 mg PO Q8HR [facility] Last Admin: 06/28/20 05:28 Dose: 300 mg Documented by: Hydrochlorothiazide (Hydrochlorothiazide 12.5 Mg Cap) 12.5 mg PO QDAY [facility] Last Admin: 06/28/20 10:42 Dose: 12.5 mg Documented by: Magnesium Hydroxide (Magnesium Hydroxide (Mom) Oral Liqd Udc) 30 ml PO Q4H PRN PRN Reason: Constipation Metoclopramide HCl (Metoclopramide 10 Mg Tab) 10 mg PO Q6H PRN PRN Reason: Nausea And Vomiting Ondansetron HCl (Ondansetron 4 Mg/2 Ml Inj) 4 mg IV Q8H PRN PRN Reason: Nausea And Vomiting Promethazine HCl (Promethazine 25 Mg Rect Supp) [address] Q6H PRN PRN Reason: Nausea And Vomiting Sodium Chloride (Sodium Chloride 0.9% 10 Ml Flush Syringe) 10 ml IV BID [facility] Last Admin: 06/28/20 10:43 Dose: 10 ml Documented by: Sodium Chloride (Sodium Chloride 0.9% 10 Ml Flush Syringe) 10 ml IV PRN PRN PRN Reason: LINE FLUSH Physical Examination - Vital Signs Vital Signs: Vital Signs Temp Pulse Resp BP Pulse Ox 98.4 F 69 18 180/94 98 06/27/20 17:02 06/27/20 17:02 06/27/20 17:02 06/27/20 17:02 06/27/20 17:02 Results - Laboratory Findings CBC and BMP: 06/28/20 04:28 06/28/20 04:28 Abnormal Lab Findings: Abnormal Labs 06/27/20 06/27/20 06/27/20 17:40 17:40 17:40 WBC 2.8 L Lymph % (Auto) Alexander % (Auto) Lymph # (Auto) Seg Neutrophils % Seg Neuts % (Manual) 34.0 L Lymphocytes % (Manual) 39.0 H Monocytes % (Manual) 23.0 H Seg Neutrophils # Seg Neutrophils # Man 1.0 L Lymphocytes # (Manual) 1.1 L PT 12.1 L CK-MB (CK-2) Rel Index 4.8 H HDL Cholesterol 06/28/20 06/28/20 04:28 04:28 WBC 2.3 L Lymph % (Auto) 43.2 H Alexander % (Auto) 15.6 H Lymph # (Auto) 1.0 L Seg Neutrophils % 39.0 L Seg Neuts % (Manual) Lymphocytes % (Manual) Monocytes % (Manual) Seg Neutrophils # 0.9 L Seg Neutrophils # Man Lymphocytes # (Manual) PT CK-MB (CK-2) Rel Index HDL Cholesterol 64 H Assessment and Plan I am cancelling this Neurology consult as the patient is complaining of throbbing pain.
[2020-06-28 17:03] VITALS: BP 142/86
[2020-06-28] MEDS ORDERED: ENOXAPARIN 40 MG/0.4 ML INJ SUB-Q SCH (22:00)
== END 2020-06-28 19:50 | disposition home health service (06) ==
LOC: ED 16:56 → 4A 21:37
PROVIDERS: ADMIT Internal Medicine Geriatric Medicine; ATTEND Internal Medicine
DX: M62.81 Muscle weakness (generalized) (principal); I10 Essential (primary) hypertension; M06.9 Rheumatoid arthritis, unspecified; E03.9 Hypothyroidism, unspecified; Z98.890 Other specified postprocedural states; Z90.49 Acquired absence of other specified parts of digestive tract; Z86.73 Personal history of transient ischemic attack (TIA), and cerebral infarction without residual deficits; Z79.899 Other long term (current) drug therapy
CPT/HCPCS: 36415; 70450; 70551; 80048; 80053; 80061; 82550; 82553; 82962; 84484; 85007; 85025; 85610; 85670; 85730; 87641; 92610; 93005; 97162; 99291; G0378

== ENCOUNTER 2020-08-09 15:32 | Emergency (ER) | payer OTHER ==
--- NOTE | 2020-08-09 15:57 | Consultation ---
History of Present Illness - Reason for Consult Consult date: 08/09/20 - History of Present Illness [facility] Consult Note # Demographics Consult Type: Acute Stroke Level 2 (4.5-24 hrs) Patient Location: Emergency Room First Name: Sarah Last Name: Edu Date of : 1965 Age: 55 Gender: Female Time of Initial Page (): 08/09/2020, 15:44 Time of Return Call (): 08/09/2020, 15:44 # HPI History: 55yo woman who was found by family on the ground. She was last normal at 7AM today. She is not able to provide much history, and states that she is raising her arms and legs, when she is not doing this. She had stroke in May. # Scores Time of exam and NIHSS (): 08/09/2020, 15:51 Level of Consciousness 1a: [1] = Not alert; but arousable by minor stim LOC Questions 1b: [0] = Answers both questions correctly LOC Commands 1c: [1] = Performs one correctly Best Gaze 2: [0] = Normal Visual 3: [0] = No visual loss Facial Palsy 4: [0] = Normal symmetrical movements Motor Arm Left 5a: [1] = Drift Motor Arm Right 5b: [1] = Drift Motor Leg Left 6a: [3] = No effort against gravity Motor Leg Right 6b: [3] = No effort against gravity Limb Ataxia 7: [0] = Absent Sensory 8: [0] = Normal Best Language 9: [0] = No aphasia Dysarthria 10: [0] = Normal Extinction and Inattention 11: [0] = No abnormality NIHSS Total: 10 # Exam Vitals: vital signs reviewed # Data Time Head CT personally read by me (): 08/09/2020, 15:[address]: no bleed # Assessment Impression: Altered Mental Status, w complaints of diffuse weakness. She is poorly cooperative with examination. # Plan Thrombolytic/Intervention: NOT IV Thrombolytic or IA Intervention Thrombolytic Exclusion (< 3 hour window): stroke within 3 months Thrombolytic Exclusion: > 4.5 hours Intraarterial Exclusion: clinically not consistent with stroke Additional Recommendations: 1. would recc metabolic alvarez. 2. if she does not improve, would admit for further evaluation and MRI brain Medications and Allergies Allergies Allergy/AdvReac Type Severity Reaction Status Date / Time aspirin Allergy Unknown Verified 05/29/20 13:31 lisinopril Allergy Unknown Verified 05/29/20 13:31 Penicillins Allergy Swelling Verified 05/29/20 13:31 Sulfa (Sulfonamide Allergy Unknown Verified 05/29/20 13:31 Antibiotics) Home Medications Medication Instructions Recorded Confirmed Last Taken Type DULoxetine 20 mg PO QDAY 05/30/20 05/30/20 Unknown History Neurontin 300 mg PO QDAY 05/30/20 05/30/20 Unknown History Norvasc 10 mg PO QDAY 05/30/20 05/30/20 Unknown History AtorvaSTATin [Lipitor] 40 mg PO QHS #30 tablet 06/01/20 Unknown Rx Clopidogrel [Plavix] 75 mg PO QDAY #30 tablet 06/01/20 Unknown Rx Gabapentin 300 mg PO Q8HR #90 capsule 06/01/20 Unknown Rx amLODIPine 10 mg PO QDAY #30 tablet 06/01/20 Unknown Rx hydroCHLOROthiazide [HCTZ] 12.5 mg PO QDAY #30 capsule 06/01/20 Unknown Rx
--- NOTE | 2020-08-09 16:01 | Cat Scan Report ---
CT HEAD WITHOUT CONTRAST INDICATION / CLINICAL INFORMATION: Stroke. TECHNIQUE: Axial imaging performed from the skull apex through the skull base without the use of cont rast. Sagittal and coronal reformatted images. All CT scans at this location are performed using CT dose reduction for ALARA by means of automated exposure control. COMPARISON: 06/27/2020 FINDINGS: CEREBRAL PARENCHYMA: No acute parenchymal abnormality is appreciated. Chronic focal cortical infarcts in the left parietal cortex and right occipital cortex measure 2.1 cm and 1.5 cm respectively. HEMORRHAGE: None. EXTRA-AXIAL SPACES: Normal in size and morphology for the patient's age. VENTRICULAR SYSTEM: Normal in size and morphology for the patient's age. MIDLINE SHIFT OR HERNIATION: None. CEREBELLUM / BRAINSTEM: No significant abnormality. CALVARIUM: No significant abnormality. ORBITS: Normal as visualized. PARANASAL SINUSES / MASTOID AIR CELLS: Normal as visualized. SOFT TISSUES of HEAD: No significant abnormality. ADDITIONAL FINDINGS: None. IMPRESSION: No acute intracranial abnormality. Chronic focal cortical infarcts in the left parietal-occipital reg ions as described. No change since 06/27/2020. CODE STROKE: Time of Communication (TIER OVER/CDT): 1370 Licensed Practitioner Receiving Report: Dr. Boyle Signer Name: Barrera Baldwin Jr, MD Signed: 08/09/2020 3:57 PM Workstation Name: [id number]
[2020-08-09 16:08] LABS: Hematocrit 41.2 % (30.3-42.9); Hemoglobin 13.6 gm/dl (10.1-14.3); Mean Corpuscular HGB Conc 33 % (30-34); Mean Corpuscular Volume 95 fl (79-97); Platelet Count 235 K/mm3 (140-440); Red Blood Count 4.34 M/mm3 (3.65-5.03); Red Cell Distribution Width 14.5 % (13.2-15.2)
[2020-08-09 16:15] VITALS: BP 168/106
[2020-08-09 16:19] LABS: INR 0.89 (0.87-1.13)
--- NOTE | 2020-08-09 16:20 | Emergency Department Report ---
ED Neuro Deficit HPI - General Chief Complaint: Neuro Symptoms/Deficit Stated Complaint: SLURR SPEECH Time Seen by Provider: 08/09/20 15:56 Source: family Mode of arrival: Wheelchair Limitations: Physical Limitation - History of Present Illness Initial Comments: Chief complaint: "My head was hurting this morning." HPI: This is a 55-year-old female with history of CVA, HTN, lupus, RA who presents with tingling on left side according to sister. Sister noticed left facial droop. She could not remember her name. Patient has hx of left sided weakness from prior CVA. According to discharge summary, patient is on plavix. Patient was admitted twice recently in May and June with stroke symptoms. History obtained from sister via phone. History also obtained from patient. PCP Dr. Wilde -: This morning, unknown Location: left face, other (Patient felt tingling on her right face) History of same: Yes Place: home Severity: moderate Improves With: none Worsens With: none Context: gradual onset Associated Symptoms: headaches (right sided headache) Treatments Prior to Arrival: none - Related Data Home Medications: Home Medications Medication Instructions Recorded Confirmed Last Taken DULoxetine 20 mg PO QDAY 05/30/20 08/09/20 Unknown Neurontin 300 mg PO QDAY 05/30/20 08/09/20 Unknown Norvasc 10 mg PO QDAY 05/30/20 08/09/20 Unknown Previous Rx's Medication Instructions Recorded Last Taken Type AtorvaSTATin [Lipitor] 40 mg PO QHS #30 tablet 06/01/20 Unknown Rx Clopidogrel [Plavix] 75 mg PO QDAY #30 tablet 06/01/20 Unknown Rx Gabapentin 300 mg PO Q8HR #90 capsule 06/01/20 Unknown Rx amLODIPine 10 mg PO QDAY #30 tablet 06/01/20 Unknown Rx hydroCHLOROthiazide [HCTZ] 12.5 mg PO QDAY #30 capsule 06/01/20 Unknown Rx Allergies/Adverse Reactions: Allergies Allergy/AdvReac Type Severity Reaction Status Date / Time aspirin Allergy Unknown Verified 05/29/20 13:31 lisinopril Allergy Unknown Verified 05/29/20 13:31 Penicillins Allergy Swelling Verified 05/29/20 13:31 Sulfa (Sulfonamide Allergy Unknown Verified 05/29/20 13:31 Antibiotics) ED Review of Systems ROS: Stated complaint: SLURR SPEECH Other details as noted in HPI Comment: All other systems reviewed and negative Constitutional: denies: fever, malaise Respiratory: denies: cough, shortness of breath Gastrointestinal: denies: abdominal pain, nausea, vomiting Neurological: headache, paresthesias, other (facial droop) ED Past Medical Hx - Past Medical History Previous Medical History?: Yes Hx Hypertension: Yes Hx CVA: Yes (05/27/2020- LEFT-SIDED WEAKNESS) Hx Arthritis: Yes (RA) Additional medical history: LUPUS/ THYROID - Surgical History Past Surgical History?: Yes Hx Cholecystectomy: Yes - Social History Smoking Status: Never Smoker - Medications Home Medications: Home Medications Medication Instructions Recorded Confirmed Last Taken Type DULoxetine 20 mg PO QDAY 05/30/20 08/09/20 Unknown History Neurontin 300 mg PO QDAY 05/30/20 08/09/20 Unknown History Norvasc 10 mg PO QDAY 05/30/20 08/09/20 Unknown History AtorvaSTATin [Lipitor] 40 mg PO QHS #30 tablet 06/01/20 08/09/20 Unknown Rx Clopidogrel [Plavix] 75 mg PO QDAY #30 tablet 06/01/20 08/09/20 Unknown Rx Gabapentin 300 mg PO Q8HR #90 capsule 06/01/20 08/09/20 Unknown Rx amLODIPine 10 mg PO QDAY #30 tablet 06/01/20 08/09/20 Unknown Rx hydroCHLOROthiazide [HCTZ] 12.5 mg PO QDAY #30 capsule 06/01/20 08/09/20 Unknown Rx ED Neuro Physical Exam - General Limitations: Physical Limitation General appearance: alert, in no apparent distress Suspected Stroke: Yes - Head Head exam: Present: atraumatic, normocephalic - Eye Eye exam: Present: normal appearance - ENT ENT exam: Present: mucous membranes moist - Neck Neck exam: Present: normal inspection, full ROM - Respiratory Respiratory exam: Present: normal lung sounds bilaterally. Absent: respiratory distress, wheezes, rales, rhonchi - Cardiovascular Cardiovascular Exam: Present: regular rate, normal rhythm, normal heart sounds. Absent: systolic murmur, diastolic murmur, rubs, gallop - GI/Abdominal GI/Abdominal exam: Present: soft, normal bowel sounds. Absent: distended, tenderness, guarding, rebound - Extremities Exam Extremities exam: Present: normal inspection - Neurological Exam Neurological exam: Present: alert, oriented X3 - NIHSS Assessment Interval: Baseline 1a. Level of Consciousness: alert/keenly responsive 1b. LOC Questions: answers both correctly 1c. LOC Commands: performs tasks correctly 2. Best Gaze: normal 3. Visual: no visual loss 4. Facial Palsy: normal symmetrical movement 5b. Motor Arm Right: no drift 5a. Motor Arm Left: no drift 6a. Motor Leg Left: drift 6b. Motor Leg Right: no drift 7. Limb Ataxia: absent 8. Sensory: normal 9. Best Language: no aphasia 10. Dysarthria: normal 11. Extinction/Inattention: no abnormality Total Score: 1 Stroke Severity: Minor Stroke - Psychiatric Psychiatric exam: Present: normal affect, normal mood - Skin Skin exam: Present: warm, dry, intact, normal color. Absent: rash ED Course Vital Signs 08/09/20 16:14 Temperature 98.2 F Pulse Rate 90 Respiratory 18 Rate Blood Pressure 168/106 [Left] O2 Sat by Pulse 99 Oximetry - Lab Data Result diagrams: 08/09/20 15:57 08/09/20 15:57 Lab Results 08/09/20 08/09/20 08/09/20 Range/Units 15:57 15:57 15:57 WBC 3.9 L (4.5-11.0) K/mm3 RBC 4.34 (3.65-5.03) M/mm3 Hgb 13.6 (10.1-14.3) gm/dl Hct 41.2 (30.3-42.9) % MCV 95 (79-97) fl MCH 31 (28-32) pg MCHC 33 (30-34) % RDW 14.5 (13.2-15.2) % Plt Count 235 (140-440) K/mm3 [place] % (Auto) Production Control Scheduler PT 11.8 L (12.2-14.9) Sec. INR 0.89 (0.87-1.13) APTT < 20.0 L (24.2-36.6) Sec. Thrombin Time (15.1-19.6) Sec. Sodium 137 (137-145) mmol/L Potassium 3.8 (3.6-5.0) mmol/L Chloride 105.0 (98-107) mmol/L Carbon Dioxide 20 L (22-30) mmol/L Anion Gap 16 mmol/L BUN 14 (7-17) mg/dL Creatinine 0.8 (0.6-1.2) mg/dL Estimated GFR > 60 ml/min BUN/Creatinine Ratio 18 % Glucose 100 (65-100) mg/dL Calcium 10.1 (8.4-10.2) mg/dL Troponin T < 0.010 (0.00-0.029) ng/mL 08/09/20 Range/Units 15:57 WBC (4.5-11.0) K/mm3 RBC (3.65-5.03) M/mm3 Hgb (10.1-14.3) gm/dl Hct (30.3-42.9) % MCV (79-97) fl MCH (28-32) pg MCHC (30-34) % RDW (13.2-15.2) % Plt Count (140-440) K/mm3 [place] % (Auto) PT (12.2-14.9) Sec. INR (0.87-1.13) APTT (24.2-36.6) Sec. Thrombin Time 17.5 (15.1-19.6) Sec. Sodium (137-145) mmol/L Potassium (3.6-5.0) mmol/L Chloride (98-107) mmol/L Carbon Dioxide (22-30) mmol/L Anion Gap mmol/L BUN (7-17) mg/dL Creatinine (0.6-1.2) mg/dL Estimated GFR ml/min BUN/Creatinine Ratio % Glucose (65-100) mg/dL Calcium (8.4-10.2) mg/dL Troponin T (0.00-0.029) ng/mL - EKG Data -: EKG Interpreted by Id EKG shows normal: sinus rhythm, axis Rate: normal Interpretation: nonspecific ST-T wave charity, LVH 08/09/20 16:31 EKG obtained 1626 EKG interpreted by la Normal sinus rhythm rate 85 bpm normal axis no ST elevation positive LVH prolonged OH interval normal QTC - Radiology Data Findings Reporting MD: Barrera Baldwin Dictation Time: August 09, 2020 14:57 Powerhouse Electrician: Not available Gas Tender Date: CT HEAD WITHOUT CONTRAST INDICATION / CLINICAL INFORMATION: Stroke. TECHNIQUE: Axial imaging performed from the skull apex through the skull base without the use of contrast. Sagittal and coronal reformatted images. All CT scans at this location are performed using CT dose reduction for ALARA by means of automated exposure control. COMPARISON: 06/27/2020 FINDINGS: CEREBRAL PARENCHYMA: No acute parenchymal abnormality is appreciated. Chronic focal cortical infarcts in the left parietal cortex and right occipital cortex measure 2.1 cm and 1.5 cm respectively. HEMORRHAGE: None. EXTRA-AXIAL SPACES: Normal in size and morphology for the patient's age. VENTRICULAR SYSTEM: Normal in size and morphology for the patient's age. MIDLINE SHIFT OR HERNIATION: None. CEREBELLUM / BRAINSTEM: No significant abnormality. CALVARIUM: No significant abnormality. ORBITS: Normal as visualized. PARANASAL SINUSES / MASTOID AIR CELLS: Normal as visualized. SOFT TISSUES of HEAD: No significant abnormality. ADDITIONAL FINDINGS: None. IMPRESSION: No acute intracranial abnormality. Chronic focal cortical infarcts in the left parietal-occipital regions as described. No change since 06/27/2020. - Medical Decision Making I spoke with neurologist who evaluated patient. He agreed that clinical presentation is not clinically consistent with stroke. Patient appeared altered with complaints of diffuse weakness during his consultation. She was not cooperative with examination. I reassessed patient thereafter, she complained of headache and right facial tingling. I did not see evidence of neurological deficit from baseline. I spoke with sister per phone who observed left facial droop. I spoke with radiologist Dr. Baldwin who informed me that patient did not have any acute changes on CT scan from previous studies. Patient is now at [facility]. I suspect tension headache with possible re- emergence syndrome. Patient has MRI brain scheduled tomorrow by cardiology specialist. Critical Care Time: Yes Critical care time in (mins) excluding proc time.: 40 Critical care attestation.: If time is entered above; I have spent that time in minutes in the direct care of this critically ill patient, excluding procedure time. 40 minutes of critical care time excluding procedures were used in the care of the patient. I came immediately to the bedside upon patient's arrival. I I discussed treatment plan with the nursing team members. I reviewed electronic record. I kept the family member informed. Patient required multiple interventions and reassessments. I discussed care with multiple consultants including radiologist and neurologist. ED Disposition Clinical Impression: Tension headache, Generalized weakness, History of CVA (cerebrovascular accident), SLE (systemic lupus erythematosus related syndrome), Rheumatoid arthritis Disposition: - TO HOME OR SELFCARE Is pt being admited?: No Does the pt Need Aspirin: No Condition: Stable Instructions: Tension Headache, Adult, Transient Ischemic Attack, [id number]
[2020-08-09] MEDS ORDERED: ACETAMINOPHEN 500 MG TAB PO ONE (16:22)
[2020-08-09 16:28] LABS: Partial Thromboplastin Time < 20.0 Sec. (24.2-36.6)
[2020-08-09 16:45] LABS: BUN/Creatinine Ratio 18; Blood Urea Nitrogen 14 mg/dL (7-17); Calcium 10.1 mg/dL (8.4-10.2); Hemolysis Index 8
[2020-08-09 17:55] LABS: Bacteria,Urine 1+ /HPF (Negative); Bilirubin,Urine NEG (Negative); Blood,Urine NEG (Negative); Color,Urine Yellow (Yellow); Mucus,Urine FEW /HPF; Protein,Urine <15 mg/dL mg/dL (Negative); Urobilinogen,Urine < 2.0 mg/dL (<2.0); WBC,Urine < 1.0 /HPF (0.0-6.0)
[2020-08-09 20:48] LABS: Total Cells Counted 100
[2020-08-09 20:50] LABS: Large Platelets Rare; Platelet Estimate Consistent w Auto; RBC Morphology Normal
--- NOTE | 2020-08-10 17:12 | Electrocardiograph Report ---
[facility] Test Date: 2020-08-09 Test Time: 16:26:56 Pat Name: NAOMIE DESAI Department: Room: Gender: F Detective Bureau Chief: TING : 1965 Requested By: JYOTI TORRES Order Number: [id number] Reading MD: Jayce Solorzano Measurements Intervals Grant Rate: 84 P: 61 WV: 216 QRS: -10 QRSD: 83 T: 126 QT: 373 QTc: 440 Interpretive Statements Sinus rhythm Prolonged WV interval LVH with secondary repolarization abnormality Borderline ST elevation, inferior leads No previous ECG available for comparison Electronically Signed On 08-10-2020 17:11:38 EDT by Jayce Solorzano
== END 2020-08-09 17:48 | disposition home or self-care (01) ==
LOC: ED 15:32
DX: G44.209 Tension-type headache, unspecified, not intractable (principal); R53.1 Weakness; I00 Rheumatic fever without heart involvement; M32.9 Systemic lupus erythematosus, unspecified; I10 Essential (primary) hypertension; M19.91 Primary osteoarthritis, unspecified site; Z86.73 Personal history of transient ischemic attack (TIA), and cerebral infarction without residual deficits; Z90.49 Acquired absence of other specified parts of digestive tract; Z79.899 Other long term (current) drug therapy; Z88.0 Allergy status to penicillin; Z88.2 Allergy status to sulfonamides; Z88.8 Allergy status to other drugs, medicaments and biological substances
CPT/HCPCS: 36415; 70450; 80048; 81001; 82962; 84484; 85007; 85025; 85610; 85670; 85730; 93005